=== PATIENT | female | born 1955 | race Two or more races ===

== ENCOUNTER 2019-06-21 14:24 | Emergency (ER) | payer MEDICARE, OTHER ==
[~2019-06-21] VITALS: Ht 160 cm; Wt 91.8 kg
[2019-06-21 14:37] VITALS: Ht 160 cm; Wt 91.8 kg
--- NOTE | 2019-06-21 14:53 | ERD ---
ER Documentation Chief Complaint Chief Complaint glucose is 394, has diarrhea sent by pmd HPI The patient is a 64-year-old female, presenting to the ER because of vomiting and diarrhea for 3 days, denies hematemesis/hematochezia, fever, chills, neck pain, chest pain, dyspnea, abdominal pain, dysuria. 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 Medications Home Meds Reported Medications Atorvastatin* (Atorvastatin*) 40 Mg Tablet, 1 TAB ORAL DAILY 06/21/19 Metformin Hcl* (Metformin Hcl*) 1,000 Mg Tablet, 1 TAB ORAL BID 06/21/19 Insulin Lispro (Humalog Kwikpen U-100) 100 Unit/1 Ml Insuln.pen, 0-12 UNITS SQ TID 06/21/19 Gabapentin* (Gabapentin*) 100 Mg Capsule, 1 CAP ORAL DAILY 06/21/19 Aspirin* (Aspirin* EC) 81 Mg Tablet.dr, 1 TAB ORAL QAM 06/21/19 Benazepril Hcl* (Benazepril Hcl*) 40 Mg Tablet, 1 TAB ORAL DAILY 06/21/19 Allergies Allergies: Coded Allergies: No Known Allergy (Unverified , 06/21/19) Physical Exam Vitals Vital Signs Date Temp Pulse Resp B/P (MAP) Pulse Ox O2 O2 Flow FiO2 Time Delivery Rate 06/21/19 82 16 120/74 100 Room Air 19:06 (89) 06/21/19 83 16 118/76 100 Room Air 16:15 (90) 06/21/19 79 16 126/54 97 Room Air 15:45 (78) 06/21/19 89 16 141/51 98 Room Air 15:13 (81) 06/21/19 98.4 85 18 155/66 100 14:37 (95) Physical Exam Const: No acute distress. Head: Atraumatic. Eyes: Normal Conjunctiva. ENT: Normal External Ears, Nose and Mouth. Neck: Full range of motion. No meningismus. Resp: Clear to auscultation bilaterally. Cardio: Regular rate and rhythm. Abd: Soft, non distended, normal bowel sounds, non tender. Skin: No petechiae or rashes. Back: No midline or flank tenderness. Ext: No cyanosis, or edema. Left leg is immobilized Neur: Awake and alert. No focal deficit Psych: Normal Mood and Affect. Result Diagram: 06/21/19 1513 06/21/19 1513 Results 24 hrs Laboratory Tests Test 06/21/19 14:37 06/21/19 14:54 06/21/19 15:13 06/21/19 15:30 Bedside Glucose 394 mg/dL Blood Gas Blood venous Specimen Source Arterial Blood 06/21/2019 3:13: Date Drawn 13 PM Arterial Blood VENOUS LINE Gas Puncture Site Ramesh Test N/A Venous Blood pH 7.349 Venous Blood 43.8 mmHG pCO2 (Temp Corrected ) Venous Blood 20.7 mmHG pO2 (Temp Corrected ) Venous Blood 23.6 mmol/L HCO3 Venous Blood 32.7 mmHG Oxygen Saturation Venous Blood -2.1 mmol/L Base Excess Venous Blood 12.8 g/dl Total Hemoglobin Venous Blood 32.4 % Oxyhemoglobin Venous Blood 0.7 % Methemoglobin Carboxyhemoglob 0.1 % in Blood Gas 37.0 C Temperature Blood Gas ROOM AIR Modality FiO2 21.0 % Blood Gas rt Notified Whom Blood Gas 06/21/2019 3:26: Notified Time 20 PM White Blood 10.0 10^3/ul Count Red Blood Count 4.86 10^6/ul Hemoglobin 12.3 g/dl Hematocrit 37.4 % Mean 77.0 fl Corpuscular Volume Mean 25.3 pg Corpuscular Hemoglobin Mean 32.9 g/dl Corpuscular Hemoglobin Conc ent Red Cell 14.3 % Distribution Width Platelet Count 382 10^3/UL Mean Platelet 10.6 fl Volume Immature 0.400 % Granulocytes % Neutrophils % 55.5 % Lymphocytes % 34.0 % Monocytes % 7.4 % Eosinophils % 2.1 % Basophils % 0.6 % Nucleated Red 0.0 /100WBC Blood Cells % Immature 0.040 10^3/ul Granulocytes # Neutrophils # 5.6 10^3/ul Lymphocytes # 3.4 10^3/ul Monocytes # 0.7 10^3/ul Eosinophils # 0.2 10^3/ul Basophils # 0.1 10^3/ul Nucleated Red 0.0 10^3/ul Blood Cells # Sodium Level 137 mmol/L Potassium Level 4.0 mmol/L Chloride Level 101 mmol/L Carbon Dioxide 25 mmol/L Level Anion Gap 11 Blood Urea 13 mg/dl Nitrogen Creatinine 1.17 mg/dl Est Glomerular 47 mL/min Filtrat Rate mL/min Glucose Level 394 mg/dl Calcium Level 9.7 mg/dl Phosphorus 3.5 mg/dl Level Magnesium Level 1.5 mg/dl Urine Color STRAW Urine Clarity CLEAR Urine pH 6.0 Urine Specific 1.015 [place] Urine Ketones NEGATIVE mg/dL Urine Nitrite NEGATIVE mg/dL Urine Bilirubin NEGATIVE mg/dL Urine NEGATIVE mg/dL Urobilinogen Urine Leukocyte NEGATIVE Sherie/ul Esterase Urine NEGATIVE mg/dL Hemoglobin Urine Glucose 3+ mg/dL Urine Total NEGATIVE mg/dl Protein Test 06/21/19 18:27 Bedside Glucose 316 mg/dL Current Medications Medications Dose Sig/Monica Start Time Status Last (Trade) Ordered Route PRN Stop Time Admin Dose Reason Admin Sodium 920 ml @ ONCE ONCE 06/21/19 DC 06/21/19 Chloride 920 mls/hr IV 15:00 15:33 06/21/19 15:59 Magnesium 50 ml @ 25 ONCE ONCE 06/21/19 DC 06/21/19 Sulfate mls/hr IVPB 18:30 18:24 06/21/19 19:06 Procedures/MDM MEDICAL MAKING DECISION: The patient is a 64-year-old female, presenting with acute vomiting and diarrhea, acute hyperglycemia, acute hypomagnesia. She was treated with normosaline 10 mm/kg IV for acute hyperglycemia, magnesium sulfate 2 g IV for acute hypomagnesia with good response, is stable for outpatient follow-up The differential diagnoses considered include but are not limited to cholelithiasis, cholecystitis, choledocholithiasis, cholangitis, pancreatitis, hepatitis, gastritis, peptic ulcer disease, gastric ulcer, appendicitis, cystitis, diverticulitis, partial small bowel obstruction. Departure Diagnosis: Primary Impression: Vomiting and diarrhea Additional Impressions: Hyperglycemia Hypomagnesemia Condition: Stable Comments She was discharged with Imodium and Zofran I discussed the findings with the patient. I advised the patient to follow-up with the primary physician in about 1-2 days, sooner if needed and return if any concern. Disclaimer: Inadvertent spelling and grammatical errors are likely due to EHR/dictation software use and do not reflect on the overall quality of patient care. Also, please note that the electronic time recorded on this note does not necessarily reflect the actual time of the patient encounter. RAMY SHETTY MD Jun 21, 2019 14:53
[2019-06-21] MEDS ORDERED: SOD CHLORIDE 0.9% 920 ML IV ONE (15:00)
[2019-06-21] MEDS ORDERED: MAGNESIUM SULFATE 2 GM/50 ML 50 ML IVPB ONE (18:30)
[2019-06-21 19:06] VITALS: BP 120/74; PULSE 82; RESP 16
[2019-06-21] MEDS ORDERED: ASPI-817 ORAL (19:26)
[2019-06-21] MEDS ORDERED: BENA40TA56 ORAL (19:26)
[2019-06-21] MEDS ORDERED: METF100010 ORAL (19:26)
[2019-06-21] MEDS ORDERED: ATOR40TA68 ORAL (19:26)
[2019-06-21] MEDS ORDERED: GABA100C14 ORAL (19:26)
[2019-06-21] MEDS ORDERED: INSU100I12 SQ (19:26)
== END 2019-06-21 19:06 | disposition home or self-care (01) ==
LOC: E/R 14:24
DX: R19.7 Diarrhea, unspecified (principal); R11.10 Vomiting, unspecified; E83.42 Hypomagnesemia; Z79.82 Long term (current) use of aspirin; Z79.84 Long term (current) use of oral hypoglycemic drugs
CPT/HCPCS: 36415; 80048; 81003; 82803; 82962; 83735; 84100; 85025; 96374; 99284; J3475

== ENCOUNTER 2019-06-29 23:32 | Inpatient (IN) | payer MEDICARE, OTHER ==
[~2019-06-29] VITALS: Ht 162.6 cm; Wt 95.3 kg
[~2019-06-29 23:32] MED LIST: ASPI-817 ORAL; ATOR40TA68 ORAL; BENA40TA56 ORAL; CHOL100062 PO; DOXY100T2 PO; GABA100C14 ORAL; INSU100I12 SQ; LANT3I SC; METF100010 ORAL; RIFA300C3 PO
[2019-06-30] MEDS ORDERED: SOD CHLORIDE 0.9% 500 ML IV STA (02:11)
[2019-06-30] MEDS ORDERED: morphine 4 MG/ML VIAL IV STA (02:13)
[2019-06-30] MEDS ORDERED: ONDANSETRON 4 MG INJ IV STA (02:13)
--- NOTE | 2019-06-30 03:23 | ERD ---
ER Documentation Chief Complaint Chief Complaint Left lower leg pain,redness noted,feels warm HPI This is a 64-year-old female comes in with left lower leg pain redness erythema and induration. She has chronic ulcers which that over the last 2 days they have been increasing indurated and has noticed some purulent drainage. She fo [facility]low[facility] the [facility] here. Denies fevers or chills. Denies any other current complaints. ROS All systems reviewed and are negative except as per history of present illness. Medications Home Meds Reported Medications Atorvastatin* (Atorvastatin*) 40 Mg Tablet, 1 TAB ORAL DAILY 06/21/19 Metformin Hcl* (Metformin Hcl*) 1,000 Mg Tablet, 1 TAB ORAL BID 06/21/19 Insulin Lispro (Humalog Kwikpen U-100) 100 Unit/1 Ml Insuln.pen, 0-12 UNITS SQ TID 06/21/19 Gabapentin* (Gabapentin*) 100 Mg Capsule, 1 CAP ORAL DAILY 06/21/19 Aspirin* (Aspirin* EC) 81 Mg Tablet.dr, 1 TAB ORAL QAM 06/21/19 Benazepril Hcl* (Benazepril Hcl*) 40 Mg Tablet, 1 TAB ORAL DAILY 06/21/19 Allergies Allergies: Coded Allergies: No Known Allergy (Unverified , 06/21/19) PMhx/Soc History of Surgery: Yes ( Section) Anesthesia Reaction: No Hx Neurological Disorder: No Hx Respiratory Disorders: No Hx Cardiac Disorders: Yes (HTN) Hx Psychiatric Problems: No Hx Alcohol Use: No Hx Substance Use: No Hx Tobacco Use: No Smoking Status: Never smoker Physical Exam Vitals Vital Signs Date Temp Pulse Resp B/P (MAP) Pulse Ox O2 O2 Flow FiO2 Time Delivery Rate 06/29/19 98.2 92 18 141/75 96 23:44 (97) Physical Exam Const: No acute distress Head: Atraumatic Eyes: Normal Conjunctiva ENT: Normal External Ears, Nose and Mouth. Neck: Full range of motion. No meningismus. Resp: Clear to auscultation bilaterally Cardio: Regular rate and rhythm, no murmurs Abd: Soft, non tender, non distended. Normal bowel sounds Skin: Erythema and induration are noted in the lower extremity. No purulent drainage is noted normal pulses. Back: No midline or flank tenderness Ext: No cyanosis, or edema Neur: Awake and alert Psych: Normal Mood and Affect Result Diagram: 06/30/19 0240 06/30/19 0240 Results 24 hrs Laboratory Tests Test 06/30/19 02:40 White Blood Count 9.5 10^3/ul Red Blood Count 4.78 10^6/ul Hemoglobin 11.9 g/dl Hematocrit 37.1 % Mean Corpuscular Volume 77.6 fl Mean Corpuscular Hemoglobin 24.9 pg Mean Corpuscular Hemoglobin Concent 32.1 g/dl Red Cell Distribution Width 14.4 % Platelet Count 342 10^3/UL Mean Platelet Volume 11.0 fl Immature Granulocytes % 0.400 % Neutrophils % 60.1 % Lymphocytes % 30.3 % Monocytes % 5.9 % Eosinophils % 2.7 % Basophils % 0.6 % Nucleated Red Blood Cells % 0.0 /100WBC Immature Granulocytes # 0.040 10^3/ul Neutrophils # 5.7 10^3/ul Lymphocytes # 2.9 10^3/ul Monocytes # 0.6 10^3/ul Eosinophils # 0.3 10^3/ul Basophils # 0.1 10^3/ul Nucleated Red Blood Cells # 0.0 10^3/ul Urine Color YELLOW Urine Clarity CLEAR Urine pH 5.0 Urine Specific [place] 1.010 Urine Ketones NEGATIVE mg/dL Urine Nitrite NEGATIVE mg/dL Urine Bilirubin NEGATIVE mg/dL Urine Urobilinogen NEGATIVE mg/dL Urine Leukocyte Esterase NEGATIVE Sherie/ul Urine Hemoglobin NEGATIVE mg/dL Urine Glucose NEGATIVE mg/dL Urine Total Protein NEGATIVE mg/dl Sodium Level 139 mmol/L Potassium Level 4.1 mmol/L Chloride Level 104 mmol/L Carbon Dioxide Level 25 mmol/L Anion Gap 10 Blood Urea Nitrogen 13 mg/dl Creatinine 0.94 mg/dl Est Glomerular Filtrat Rate mL/min > 60 mL/min Glucose Level 201 mg/dl Calcium Level 9.5 mg/dl Total Bilirubin 0.3 mg/dl Direct Bilirubin 0.00 mg/dl Indirect Bilirubin 0.3 mg/dl Aspartate Amino Transf (AST/SGOT) 24 IU/L Alanine Aminotransferase (ALT/SGPT) 34 IU/L Alkaline Phosphatase 90 IU/L Total Protein 7.5 g/dl Albumin 3.9 g/dl Globulin 3.60 g/dl Albumin/Globulin Ratio 1.08 Lipase 139 U/L Current Medications Medications Dose Sig/Monica Start Time Status Last (Trade) Ordered Route PRN Stop Time Admin Dose Reason Admin Sodium 500 ml @ Q1H STAT 06/30/19 DC 06/30/19 Chloride 500 mls/hr IV 02:11 02:44 06/30/19 03:10 Morphine 4 mg ONCE STAT 06/30/19 DC 06/30/19 Sulfate IV 02:13 02:44 (morphine) 06/30/19 02:15 Ondansetron 4 mg ONCE STAT 06/30/19 DC 06/30/19 HCl (Zofran IV 02:13 02:44 Inj) 06/30/19 02:15 Ondansetron 4 mg BRIDGE ORDER 06/30/19 HCl (Zofran PRN IV 03:30 07/01/19 Inj) NAUSEA/VOMITI 03:29 NG 650 mg ER BRIDGE 06/30/19 Acetaminophen PRN PO 03:30 07/01/19 (Tylenol .MILD PAIN 03:29 Tab) 1-3 OR TEMP Piperacillin 100 ml @ ONCE ONCE 06/30/19 Sod/ 200 mls/hr IVPB 03:30 Tazobactam 06/30/19 03:59 Sod Procedures/MDM Medical decision makin female with looks to be infected chronic venous stasis ulcers. Patient will be admitted to hospitalist. Departure Diagnosis: Primary Impression: Infected stasis ulcer of lower extremity Condition: Serious MARYLOU FREEMAN Jun 30, 2019 03:23
[2019-06-30] MEDS ORDERED: ONDANSETRON 4 MG INJ IV PRN ×2 (03:30→04:00)
[2019-06-30] MEDS ORDERED: ACETAMINOPHEN 325 MG TAB PO PRN ×2 (03:30→04:00)
[2019-06-30] MEDS ORDERED: PIPER-TAZO 3.375 GM IV (PMX) 100 ML IVPB ONE (03:30)
[2019-06-30] MEDS ORDERED: ALBUTEROL/IPRATROPIUM (NEB) 3 ML AMP HHN PRN (04:00)
[2019-06-30] MEDS ORDERED: NACL 0.9% 3 ML SYG IV SCH (04:00)
[2019-06-30] MEDS ORDERED: HYDROCODONE/APAP (5/325) TAB PO PRN (04:00)
[2019-06-30 04:20] VITALS: BP 125/54; PULSE 81; RESP 18
[2019-06-30 04:23] VITALS: Ht 162.6 cm; Wt 95.3 kg
[2019-06-30] MEDS: HYDROCODONE/APAP (5/325) TAB PO PRN ×2 (04:51→12:14)
--- NOTE | 2019-06-30 06:54 | HP ---
Date/Time of Note Date/Time of Note DATE: 06/30/19 TIME: 06:50 Assessment/Plan VTE Prophylaxis SCD applied (from Nsg): Yes Pharmacological prophylaxis: heparin Lines/Catheters IV Catheter Type (from Nrsg): Peripheral IV Assessment/Plan Assessment/Plan 1. Acute on chronic left leg/ankle ulcer -Patient is venous stasis disease and chronic ulcer. 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 Min -IV antibiotic -Podiatry, ID and wound care consult -Wound culture 2. Hypertension: Continue home meds. Adjust as needed 3. Type 2 diabetes: Insulin while in-house 4. Dyslipidemia: Continue statin Result Diagram: 06/30/19 0240 06/30/19 0240 Results 24hrs Laboratory Tests Test 06/30/19 02:40 White Blood Count 9.5 Red Blood Count 4.78 Hemoglobin 11.9 L Hematocrit 37.1 Mean Corpuscular Volume 77.6 L Mean Corpuscular Hemoglobin 24.9 L Mean Corpuscular Hemoglobin Concent 32.1 Red Cell Distribution Width 14.4 Platelet Count 342 Mean Platelet Volume 11.0 H Immature Granulocytes % 0.400 Neutrophils % 60.1 Lymphocytes % 30.3 Monocytes % 5.9 Eosinophils % 2.7 Basophils % 0.6 Nucleated Red Blood Cells % 0.0 Immature Granulocytes # 0.040 H Neutrophils # 5.7 Lymphocytes # 2.9 Monocytes # 0.6 Eosinophils # 0.3 Basophils # 0.1 Nucleated Red Blood Cells # 0.0 Urine Color YELLOW Urine Clarity CLEAR Urine pH 5.0 Urine Specific [place] 1.010 Urine Ketones NEGATIVE Urine Nitrite NEGATIVE Urine Bilirubin NEGATIVE Urine Urobilinogen NEGATIVE Urine Leukocyte Esterase NEGATIVE Urine Hemoglobin NEGATIVE Urine Glucose NEGATIVE Urine Total Protein NEGATIVE Sodium Level 139 Potassium Level 4.1 Chloride Level 104 Carbon Dioxide Level 25 Anion Gap 10 Blood Urea Nitrogen 13 Creatinine 0.94 Est Glomerular Filtrat Rate mL/min > 60 Glucose Level 201 Calcium Level 9.5 Total Bilirubin 0.3 Direct Bilirubin 0.00 Indirect Bilirubin 0.3 Aspartate Amino Transf (AST/SGOT) 24 Alanine Aminotransferase (ALT/SGPT) 34 Alkaline Phosphatase 90 Total Protein 7.5 Albumin 3.9 Globulin 3.60 H Albumin/Globulin Ratio 1.08 Lipase 139 HPI/ROS Admit Date/Time Admit Date/Time Jun 30, 2019 at 03:17 Hx of Present Illness Patient is a 64-year-old female with a history of hypertension, type 2 diabetes (insulin-dependent), dyslipidemia who presented to ER complaining of worsening of left ankle/leg ulceration, redness, pain. Patient has venous stasis disease and ulceration of the left ankle. She underwent debridement 3 weeks ago by podiatry, Dr. Min. Patient here with increased discharge, erythema and tenderness. Vitals, basic labs is acceptable range. PMH/Family/Social Past Medical History Past Surgical Hx: other (see hpi) Family History Significant Family History: no pertinent family hx Social History Alcohol Use: other Smoking Status: Unknown if ever smoked Drug Use: other Exam Exam Constitutional: no acute distress Head: normocephalic, atraumatic Eyes: EOMI, PERRL Respiratory: clear to auscultation, normal air movement Cardiovascular: no skipped beat Gastrointestinal: soft, non-tender Extremities: palpable pulse Medications Current Medications IV Flush (NS 3 ml) 3 ml PER PROTOCOL IV ; Start 06/30/19 at 04:00 Ondansetron HCl (Zofran Inj) 4 mg Q6H PRN IV NAUSEA/VOMITING; Start 06/30/19 at 04:00 Acetaminophen (Tylenol Tab) 650 mg Q6H PRN PO .PAIN 1-3 OR TEMP; Start 06/30/19 at 04:00 Acetaminophen/ Hydrocodone Bitart ([place] (5/325)) 1 tab Q6H PRN PO .MOD PAIN 4- 6 Last administered on 06/30/19at 04:51; Admin Dose 1 TAB; Start 06/30/19 at 04:00 Acetaminophen/ Hydrocodone Bitart ([place] (5/325)) 2 tab Q6H PRN PO .SEVERE PAIN 7-10; Start 06/30/19 at 04:00 Heparin Sodium (Porcine) (Heparin (5000 Units/1ml)) 5,000 unit Q12 SC ; Start 06/30/19 at 09:00 Albuterol/ Ipratropium (Duoneb) 3 ml Q2H RESP THERAPY PRN HHN SHORTNESS OF BREATH; Start 06/30/19 at 04:00 Aspirin (Halfprin) 81 mg QAM PO ; Start 06/30/19 at 09:00 Atorvastatin Calcium (Lipitor) 40 mg QHS PO ; Start 06/30/19 at 21:00 Benazepril HCl (Lotensin) 40 mg DAILY PO ; Start 06/30/19 at 09:00 Gabapentin (Neurontin) 100 mg TID PO ; Start 06/30/19 at 09:00 Diagnostic Test (Pha) (Accu-Chek) 1 ea AC MEALS AND BEDTIME XX ; Start 06/30/19 at 07:05 Coded Allergies: No Known Allergy (Unverified , 06/21/19) Social History Smoking Status: Never smoker Exam/Review of Systems Vital Signs Vitals Vital Signs Date Temp Pulse Resp B/P (MAP) Pulse Ox O2 O2 Flow FiO2 Time Delivery Rate 06/30/19 98.7 81 18 125/54 100 04:20 (77) 06/30/19 Room Air 03:59 Intake and Output 06/29/19 06/29/19 06/30/19 1515:00 23:00 07:00 IntakeIntake Total 500 ml BalanceBalance 500 ml MARYLOU JENNINGS MD Jun 30, 2019 06:54
[2019-06-30] MEDS ORDERED: VANCOMYCIN IV PER PHARMACY XX SCH (07:00)
[2019-06-30] MEDS: ACCU-CHEK XX SCH ×4 (07:05→21:00)
[2019-06-30] MEDS ORDERED: VANCOMYCIN 1.5 GM/NS 250 ML 250 ML IVPB SCH (08:00)
[2019-06-30] MEDS: CEFEPIME 1GM/50 ML (PMX) 50 ML IVPB SCH ×2 (08:11→21:34)
[2019-06-30] MEDS: ASPIRIN (EC) 81 MG TAB PO SCH (08:12)
[2019-06-30] MEDS: HEPARIN 5,000 UNIT/1 ML VIAL SC SCH ×2 (08:12→21:39)
[2019-06-30] MEDS: GABAPENTIN 100 MG CAP PO SCH ×3 (08:12→21:34)
[2019-06-30] MEDS: BENAZEPRIL 40 MG TAB PO SCH (08:13)
[2019-06-30 08:21] VITALS: BP 110/57; PULSE 77
[2019-06-30] MEDS: INSULIN ASPART [NOVOLOG] 3 ML PEN SC SCH ×5 (13:22→21:00)
[2019-06-30] MEDS ORDERED: DEXTROSE 50% 50 ML SYRINGE IV PRN ×2 (13:30)
[2019-06-30] MEDS ORDERED: GLUCOSE GEL 15 GRAM TUBE BUCCAL PRN (13:30)
[2019-06-30] MEDS ORDERED: GLUCAGON 1 MG INJ IM PRN (13:30)
[2019-06-30] MEDS ORDERED: GLUCOSE GEL 15 GRAM TUBE PO PRN ×2 (13:30)
--- NOTE | 2019-06-30 15:06 | PN ---
Date/Time of Note Date/Time of Note DATE: 06/30/19 TIME: 15:04 Assessment/Plan VTE Prophylaxis Risk score (from Nsg)>0 risk: 2 SCD applied (from Nsg): Yes Pharmacological prophylaxis: heparin Lines/Catheters IV Catheter Type (from Nrs): [place] Assessment/Plan Hospital Course Assessment and plan #Acute on chronic left leg/ankle ulcer Continue antibiotics Continue wound care ID consult to follow Follow-up on cultures #Hypertension Continue antihypertensives Adjust as needed Diabetes Continue insulin Adjust regimen as needed Dyslipidemia Continue statin Disposition plan. Follow-up on ID recommendations. Follow-up cultures. Monitor in-house Discussed POC with Dr. Landaverde Result Diagram: 06/30/19 0240 06/30/19 0240 Results 24hrs Laboratory Tests Test 06/30/19 02:40 06/30/19 08:14 06/30/19 12:48 White Blood Count 9.5 Red Blood Count 4.78 Hemoglobin 11.9 L Hematocrit 37.1 Mean Corpuscular Volume 77.6 L Mean Corpuscular Hemoglobin 24.9 L Mean Corpuscular Hemoglobin Concent 32.1 Red Cell Distribution Width 14.4 Platelet Count 342 Mean Platelet Volume 11.0 H Immature Granulocytes % 0.400 Neutrophils % 60.1 Lymphocytes % 30.3 Monocytes % 5.9 Eosinophils % 2.7 Basophils % 0.6 Nucleated Red Blood Cells % 0.0 Immature Granulocytes # 0.040 H Neutrophils # 5.7 Lymphocytes # 2.9 Monocytes # 0.6 Eosinophils # 0.3 Basophils # 0.1 Nucleated Red Blood Cells # 0.0 Urine Color YELLOW Urine Clarity CLEAR Urine pH 5.0 Urine Specific [place] 1.010 Urine Ketones NEGATIVE Urine Nitrite NEGATIVE Urine Bilirubin NEGATIVE Urine Urobilinogen NEGATIVE Urine Leukocyte Esterase NEGATIVE Urine Hemoglobin NEGATIVE Urine Glucose NEGATIVE Urine Total Protein NEGATIVE Sodium Level 139 Potassium Level 4.1 Chloride Level 104 Carbon Dioxide Level 25 Anion Gap 10 Blood Urea Nitrogen 13 Creatinine 0.94 Est Glomerular Filtrat Rate mL/min > 60 Glucose Level 201 Hemoglobin A1c 13.2 H Calcium Level 9.5 Total Bilirubin 0.3 Direct Bilirubin 0.00 Indirect Bilirubin 0.3 Aspartate Amino Transf (AST/SGOT) 24 Alanine Aminotransferase (ALT/SGPT) 34 Alkaline Phosphatase 90 Total Protein 7.5 Albumin 3.9 Globulin 3.60 H Albumin/Globulin Ratio 1.08 Lipase 139 Bedside Glucose 175 296 H Subjective 24 Hr Interval Summary Free Text/Dictation Patient still with reports of left foot discomfort. 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 intact, nl mental status, nl speech Skin: other (Left lower lateral leg wound) Results Results 24hrs Laboratory Tests Test 06/30/19 02:40 06/30/19 08:14 06/30/19 12:48 White Blood Count 9.5 Red Blood Count 4.78 Hemoglobin 11.9 L Hematocrit 37.1 Mean Corpuscular Volume 77.6 L Mean Corpuscular Hemoglobin 24.9 L Mean Corpuscular Hemoglobin Concent 32.1 Red Cell Distribution Width 14.4 Platelet Count 342 Mean Platelet Volume 11.0 H Immature Granulocytes % 0.400 Neutrophils % 60.1 Lymphocytes % 30.3 Monocytes % 5.9 Eosinophils % 2.7 Basophils % 0.6 Nucleated Red Blood Cells % 0.0 Immature Granulocytes # 0.040 H Neutrophils # 5.7 Lymphocytes # 2.9 Monocytes # 0.6 Eosinophils # 0.3 Basophils # 0.1 Nucleated Red Blood Cells # 0.0 Urine Color YELLOW Urine Clarity CLEAR Urine pH 5.0 Urine Specific [place] 1.010 Urine Ketones NEGATIVE Urine Nitrite NEGATIVE Urine Bilirubin NEGATIVE Urine Urobilinogen NEGATIVE Urine Leukocyte Esterase NEGATIVE Urine Hemoglobin NEGATIVE Urine Glucose NEGATIVE Urine Total Protein NEGATIVE Sodium Level 139 Potassium Level 4.1 Chloride Level 104 Carbon Dioxide Level 25 Anion Gap 10 Blood Urea Nitrogen 13 Creatinine 0.94 Est Glomerular Filtrat Rate mL/min > 60 Glucose Level 201 Hemoglobin A1c 13.2 H Calcium Level 9.5 Total Bilirubin 0.3 Direct Bilirubin 0.00 Indirect Bilirubin 0.3 Aspartate Amino Transf (AST/SGOT) 24 Alanine Aminotransferase (ALT/SGPT) 34 Alkaline Phosphatase 90 Total Protein 7.5 Albumin 3.9 Globulin 3.60 H Albumin/Globulin Ratio 1.08 Lipase 139 Bedside Glucose 175 296 H Medications Medication Current Medications IV Flush (NS 3 ml) 3 ml PER PROTOCOL IV ; Start 06/30/19 at 04:00 Ondansetron HCl (Zofran Inj) 4 mg Q6H PRN IV NAUSEA/VOMITING Last administered on 06/30/19at 08:42; Admin Dose 4 MG; Start 06/30/19 at 04:00 Acetaminophen (Tylenol Tab) 650 mg Q6H PRN PO .PAIN 1-3 OR TEMP; Start 06/30/19 at 04:00 Acetaminophen/ Hydrocodone Bitart ([place] (5/325)) 1 tab Q6H PRN PO .MOD PAIN 4- 6 Last administered on 06/30/19at 12:14; Admin Dose 1 TAB; Start 06/30/19 at 04:00 Acetaminophen/ Hydrocodone Bitart ([place] (5/325)) 2 tab Q6H PRN PO .SEVERE PAIN 7-10; Start 06/30/19 at 04:00 Heparin Sodium (Porcine) (Heparin (5000 Units/1ml)) 5,000 unit Q12 SC Last administered on 06/30/19at 08:12; Admin Dose 5,000 UNIT; Start 06/30/19 at 09:00 Albuterol/ Ipratropium (Duoneb) 3 ml Q2H RESP THERAPY PRN HHN SHORTNESS OF BREATH; Start 06/30/19 at 04:00 Aspirin (Halfprin) 81 mg QAM PO Last administered on 06/30/19at 08:12; Admin Dose 81 MG; Start 06/30/19 at 09:00 Atorvastatin Calcium (Lipitor) 40 mg QHS PO ; Start 06/30/19 at 21:00 Benazepril HCl (Lotensin) 40 mg DAILY PO Last administered on 06/30/19at 08:13; Admin Dose 40 MG; Start 06/30/19 at 09:00 Gabapentin (Neurontin) 100 mg TID PO Last administered on 06/30/19at 13:27; Admin Dose 100 MG; Start 06/30/19 at 09:00 Diagnostic Test (Pha) (Accu-Chek) 1 ea AC MEALS AND BEDTIME XX ; Start 06/30/19 at 07:05 Vancomycin HCl (Vanco Iv Per Pharmacy) VANCOMYCIN PER PHARMACY PER PROTOCOL XX ; Start 06/30/19 at 07:00 Cefepime HCl 50 ml @ 100 mls/hr Q12 IVPB Last administered on 06/30/19at 08:11; Admin Dose 100 MLS/HR; Start 06/30/19 at 09:00 Vancomycin HCl 250 ml @ 125 mls/hr Q12H IVPB ; Start 06/30/19 at 18:00 Diagnostic Test (Pha) (Accu-Chek) 1 ea 02 XX ; Start 07/01/19 at 02:00 Insulin Glargine (Lantus) 14 units DAILY@2000 SC ; Start 06/30/19 at 20:00 Insulin Aspart (Novolog Insulin Pen) 5 unit WITH MEALS SC Last administered on 06/30/19at 13:22; Admin Dose 5 UNIT; Start 06/30/19 at 13:30 Insulin Aspart (Novolog Insulin Pen) NOVOLOG *MILD* ALGORITHM WITH MEALS BEDTIME SC Last administered on 06/30/19at 13:22; Admin Dose 4 UNIT; Start 06/30/19 at 13:30 Miscellaneous Information 1 ea NOTE XX ; Start 06/30/19 at 13:30 Glucose (Glutose) 15 gm Q15M PRN PO DECREASED GLUCOSE; Start 06/30/19 at 13:30 Glucose (Glutose) 22.5 gm Q15M PRN PO DECREASED GLUCOSE; Start 06/30/19 at 13:30 Dextrose (D50w Syringe) 25 ml Q15M PRN IV DECREASED GLUCOSE; Start 06/30/19 at 13:30 Dextrose (D50w Syringe) 50 ml Q15M PRN IV DECREASED GLUCOSE; Start 06/30/19 at 13:30 Glucagon (Glucagen) 1 mg Q15M PRN IM DECREASED GLUCOSE; Start 06/30/19 at 13:30 Glucose (Glutose) 15 gm Q15M PRN BUCCAL DECREASED GLUCOSE; Start 06/30/19 at 13:30 DANIEL FERRARI NP Jun 30, 2019 15:06
[2019-06-30] MEDS: VANCOMYCIN 1 GM 250 ML IVPB SCH (17:32)
[2019-06-30 19:43] VITALS: BP 104/51; PULSE 79; RESP 18
[2019-06-30] MEDS: INSULIN GLARGINE [LANTus] (100 UNITS/ML) SYG SC SCH (20:20)
[2019-06-30] MEDS: ATORVASTATIN 40 MG TAB PO SCH (21:34)
[2019-07-01 01:36] VITALS: BP 100/55; PULSE 74; RESP 18
[2019-07-01] MEDS: ACCU-CHEK XX SCH ×5 (02:00→20:43)
[2019-07-01] MEDS: VANCOMYCIN 1 GM 250 ML IVPB SCH ×2 (06:13→17:49)
[2019-07-01] MEDS: INSULIN ASPART [NOVOLOG] 3 ML PEN SC SCH ×7 (07:35→20:41)
[2019-07-01 08:00] VITALS: BP 114/55; PULSE 73; RESP 20
[2019-07-01] MEDS: GABAPENTIN 100 MG CAP PO SCH ×3 (08:48→20:34)
[2019-07-01] MEDS: ASPIRIN (EC) 81 MG TAB PO SCH (08:48)
[2019-07-01] MEDS: HYDROCODONE/APAP (5/325) TAB PO PRN ×2 (08:48→20:37)
[2019-07-01] MEDS: CEFEPIME 1GM/50 ML (PMX) 50 ML IVPB SCH ×2 (08:49→21:33)
[2019-07-01] MEDS: BENAZEPRIL 40 MG TAB PO SCH (08:49)
[2019-07-01] MEDS: HEPARIN 5,000 UNIT/1 ML VIAL SC SCH ×2 (08:52→20:41)
--- NOTE | 2019-07-01 11:04 | PN ---
Date/Time of Note Date/Time of Note DATE: 07/01/19 TIME: 11:02 Assessment/Plan VTE Prophylaxis Risk score (from Ns)>0 risk: 2 SCD applied (from Nsg): Yes Pharmacological prophylaxis: heparin Lines/Catheters IV Catheter Type (from Nrs): Saline Lock Assessment/Plan Hospital Course Assessment and plan #Acute on chronic left leg/ankle ulcer Continue antibiotics Continue wound care ID consult to follow Follow-up on cultures Podiatry consulted #Hypertension Continue antihypertensives Adjust as needed Diabetes Continue insulin Adjust regimen as needed Dyslipidemia Continue statin Disposition plan. Follow-up on ID recommendations. Follow-up cultures. analgesics prn. f/u labs Discussed POC with Dr. Landaverde Result Diagram: 07/01/19 0451 07/01/19 0451 Results 24hrs Laboratory Tests Test 06/30/19 12:48 06/30/19 17:08 06/30/19 20:16 06/30/19 21:32 Bedside Glucose 296 H 175 168 148 Test 07/01/19 04:51 07/01/19 08:18 White Blood Count 6.7 # Red Blood Count 4.08 L Hemoglobin 10.4 L Hematocrit 32.1 L Mean Corpuscular 78.7 L Volume Mean Corpuscular 25.5 L Hemoglobin Mean Corpuscular 32.4 Hemoglobin Concent Red Cell 14.6 H Distribution Width Platelet Count 285 Mean Platelet Volume 11.2 H Immature 0.300 Granulocytes % Neutrophils % 56.9 Lymphocytes % 34.4 Monocytes % 5.4 Eosinophils % 2.4 Basophils % 0.6 Nucleated Red Blood 0.0 Cells % Immature 0.020 Granulocytes # Neutrophils # 3.8 Lymphocytes # 2.3 Monocytes # 0.4 Eosinophils # 0.2 Basophils # 0.0 Nucleated Red Blood 0.0 Cells # Sodium Level 137 Potassium Level 4.2 Chloride Level 107 Carbon Dioxide Level 26 Anion Gap 4 L Blood Urea Nitrogen 9 Creatinine 0.68 Est Glomerular > 60 Filtrat Rate mL/min Glucose Level 148 # Hemoglobin A1c 13.2 H Calcium Level 8.7 Phosphorus Level 3.6 Magnesium Level 1.5 L Total Bilirubin 0.4 Direct Bilirubin 0.00 Indirect Bilirubin 0.4 Aspartate Amino 22 Transf (AST/SGOT) Alanine 23 Aminotransferase (AL T/SGPT) Alkaline Phosphatase 73 Total Protein 5.7 #L Albumin 3.0 L Globulin 2.70 Albumin/Globulin 1.11 Ratio Triglycerides Level 152 H Cholesterol Level 137 LDL Cholesterol, 76 Calculated HDL Cholesterol 31 L Cholesterol/HDL 4.4 Ratio Bedside Glucose 138 Subjective 24 Hr Interval Summary Free Text/Dictation Reports less pain on left lower extremity. Dressing in place, CDI Exam/Review of Systems Exam Vitals Vital Signs Date Temp Pulse Resp B/P (MAP) Pulse Ox O2 O2 Flow FiO2 Time Delivery Rate 07/01/19 98.0 73 20 114/55 96 08:00 (74) 06/30/19 Room Air 08:21 Intake and Output 06/30/19 06/30/19 07/01/19 1515:00 23:00 07:00 IntakeIntake Total 300 ml BalanceBalance 300 ml Exam Constitutional: alert, oriented, obese Psych: nl mood/affect Head: normocephalic Respiratory: clear to auscultation, normal air movement Cardiovascular: regular rate and rhythm Gastrointestinal: soft, non-tender Neurological: DULSER II-XII intact, nl mental status, nl speech Skin: other (Left lower lateral leg wound) dressing cdi Results Results 24hrs Laboratory Tests Test 06/30/19 12:48 06/30/19 17:08 06/30/19 20:16 06/30/19 21:32 Bedside Glucose 296 H 175 168 148 Test 07/01/19 04:51 07/01/19 08:18 White Blood Count 6.7 # Red Blood Count 4.08 L Hemoglobin 10.4 L Hematocrit 32.1 L Mean Corpuscular 78.7 L Volume Mean Corpuscular 25.5 L Hemoglobin Mean Corpuscular 32.4 Hemoglobin Concent Red Cell 14.6 H Distribution Width Platelet Count 285 Mean Platelet Volume 11.2 H Immature 0.300 Granulocytes % Neutrophils % 56.9 Lymphocytes % 34.4 Monocytes % 5.4 Eosinophils % 2.4 Basophils % 0.6 Nucleated Red Blood 0.0 Cells % Immature 0.020 Granulocytes # Neutrophils # 3.8 Lymphocytes # 2.3 Monocytes # 0.4 Eosinophils # 0.2 Basophils # 0.0 Nucleated Red Blood 0.0 Cells # Sodium Level 137 Potassium Level 4.2 Chloride Level 107 Carbon Dioxide Level 26 Anion Gap 4 L Blood Urea Nitrogen 9 Creatinine 0.68 Est Glomerular > 60 Filtrat Rate mL/min Glucose Level 148 # Hemoglobin A1c 13.2 H Calcium Level 8.7 Phosphorus Level 3.6 Magnesium Level 1.5 L Total Bilirubin 0.4 Direct Bilirubin 0.00 Indirect Bilirubin 0.4 Aspartate Amino 22 Transf (AST/SGOT) Alanine 23 Aminotransferase (AL T/SGPT) Alkaline Phosphatase 73 Total Protein 5.7 #L Albumin 3.0 L Globulin 2.70 Albumin/Globulin 1.11 Ratio Triglycerides Level 152 H Cholesterol Level 137 LDL Cholesterol, 76 Calculated HDL Cholesterol 31 L Cholesterol/HDL 4.4 Ratio Bedside Glucose 138 Medications Medication Current Medications IV Flush (NS 3 ml) 3 ml PER PROTOCOL IV ; Start 06/30/19 at 04:00 Ondansetron HCl (Zofran Inj) 4 mg Q6H PRN IV NAUSEA/VOMITING Last administered on 06/30/19 08:42; Admin Dose 4 MG; Start 06/30/19 at 04:00 Acetaminophen (Tylenol Tab) 650 mg Q6H PRN PO .PAIN 1-3 OR TEMP; Start 06/30/19 at 04:00 Acetaminophen/ Hydrocodone Bitart ([place] (5/325)) 1 tab Q6H PRN PO .MOD PAIN 4- 6 Last administered on 07/01/19at 08:48; Admin Dose 1 TAB; Start 06/30/19 at 04:00 Acetaminophen/ Hydrocodone Bitart ([place] (5/325)) 2 tab Q6H PRN PO .SEVERE PAIN 7-10; Start 06/30/19 at 04:00 Heparin Sodium (Porcine) (Heparin (5000 Units/1ml)) 5,000 unit Q12 SC Last administered on 07/01/19 08:52; Admin Dose 5,000 UNIT; Start 06/30/19 at 09:00 Albuterol/ Ipratropium (Duoneb) 3 ml Q2H RESP THERAPY PRN HHN SHORTNESS OF BREATH; Start 06/30/19 at 04:00 Aspirin (Halfprin) 81 mg QAM PO Last administered on 07/01/19 08:48; Admin Dose 81 MG; Start 06/30/19 at 09:00 Atorvastatin Calcium (Lipitor) 40 mg QHS PO Last administered on 06/30/19at 21:34; Admin Dose 40 MG; Start 06/30/19 at 21:00 Benazepril HCl (Lotensin) 40 mg DAILY PO Last administered on 07/01/19 08:49; Admin Dose 40 MG; Start 06/30/19 at 09:00 Gabapentin (Neurontin) 100 mg TID PO Last administered on 07/01/19at 08:48; Admin Dose 100 MG; Start 06/30/19 at 09:00 Diagnostic Test (Pha) (Accu-Chek) 1 ea AC MEALS AND BEDTIME XX ; Start 06/30/19 at 07:05 Vancomycin HCl (Vanco Iv Per Pharmacy) VANCOMYCIN PER PHARMACY PER PROTOCOL XX ; Start 06/30/19 at 07:00 Cefepime HCl 50 ml @ 100 mls/hr Q12 IVPB Last administered on 07/01/19at 08:49; Admin Dose 100 MLS/HR; Start 06/30/19 at 09:00 Vancomycin HCl 250 ml @ 125 mls/hr Q12H IVPB Last administered on 07/01/19at 06:13; Admin Dose 125 MLS/HR; Start 06/30/19 at 18:00 Diagnostic Test (Pha) (Accu-Chek) 1 ea 02 XX ; Start 07/01/19 at 02:00 Insulin Glargine (Lantus) 14 units DAILY@2000 SC Last administered on 06/30/19at 20:20; Admin Dose 14 UNITS; Start 06/30/19 at 20:00 Insulin Aspart (Novolog Insulin Pen) 5 unit WITH MEALS SC Last administered on 07/01/19at 08:52; Admin Dose 5 UNIT; Start 06/30/19 at 13:30 Insulin Aspart (Novolog Insulin Pen) NOVOLOG *MILD* ALGORITHM WITH MEALS BEDTIME SC Last administered on 06/30/19at 17:34; Admin Dose 1 UNIT; Start 06/30/19 at 13:30 Miscellaneous Information 1 ea NOTE XX ; Start 06/30/19 at 13:30 Glucose (Glutose) 15 gm Q15M PRN PO DECREASED GLUCOSE; Start 06/30/19 at 13:30 Glucose (Glutose) 22.5 gm Q15M PRN PO DECREASED GLUCOSE; Start 06/30/19 at 13:30 Dextrose (D50w Syringe) 25 ml Q15M PRN IV DECREASED GLUCOSE; Start 06/30/19 at 13:30 Dextrose (D50w Syringe) 50 ml Q15M PRN IV DECREASED GLUCOSE; Start 06/30/19 at 13:30 Glucagon (Glucagen) 1 mg Q15M PRN IM DECREASED GLUCOSE; Start 06/30/19 at 13:30 Glucose (Glutose) 15 gm Q15M PRN BUCCAL DECREASED GLUCOSE; Start 06/30/19 at 13:30 DANIEL FERRARI NP Jul 01, 2019 11:03
--- NOTE | 2019-07-01 13:31 | CONS ---
DATE OF ADMISSION: 06/30/2019 DATE OF CONSULTATION: 07/01/2019 TYPE OF CONSULTATION: Infectious disease. REASON FOR CONSULTATION: Antibiotic management. HISTORY OF PRESENT ILLNESS: Guerda Swenson is a 64-year-old female who comes in with left lower leg p ain with redness and induration. She has chronic ulcers which over the last few days have been incre asingly indurated and she noted some purulent drainage as well. She follows up at the [facility]. Past problems include history of and hypertension as well as diabetes mellitus. She is on insulin and she has diabetic neuropathy, on gabapentin. She also is hypertensive as noted. PAST MEDICAL HISTORY: As outlined. FAMILY HISTORY: Noncontributory. SOCIAL HISTORY: She does not smoke, drink or abuse drugs. ALLERGIES: NONE TO PENICILLIN, SULFA OR FOODS. MEDICATIONS: Per chart. REVIEW OF SYSTEMS: Noncontributory. PHYSICAL EXAMINATION: GENERAL: The patient is a well-developed, well-nourished female, alert, responsive, in no acute dist ress. VITAL SIGNS: Stable. She is afebrile. SKIN: Without generalized rash. HEENT: Within normal limits. NECK: Supple. LYMPH NODES: None palpable. CHEST: Decreased breath sounds at the bases. HEART: Without murmur or gallop. ABDOMEN: Soft, nontender, without organosplenomegaly or masses. EXTREMITIES: She has erythema and induration in the lower extremities without purulent drainage. RECTAL AND GENITAL: Deferred. NEUROLOGIC: No focal neurological abnormality. ANCILLARY LABORATORY DATA: White count is 9.5, H and H 11.9 and 37.1, platelet count 342,000. BUN a nd creatinine 13/0.94 and glucose of 201. Her neutrophil count is 60%. IMPRESSION AND PLAN: The patient was started on Zosyn. Wound cultures growing Staph aureus. MRSA s creen is negative. Blood cultures are negative. The patient was begun on vancomycin as well as cefe pime. At present, patient has acute on chronic left leg ankle ulcer. Podiatry was consulted. She i s on good medication with regards to her antibiotics. We will continue her on current therapy. I wi ll dictate my findings to the hospitalists. Dictated By: LOPEZ PACE MD, JD/KOFI Conf#: [id number] [facility]#: [id number] CC: MARYLOU JENNINGS MD;*End*
[2019-07-01 14:00] VITALS: BP 126/47; PULSE 76; RESP 16
[2019-07-01 19:57] VITALS: BP 124/59; PULSE 75; RESP 18
[2019-07-01] MEDS: ATORVASTATIN 40 MG TAB PO SCH (20:34)
[2019-07-01] MEDS: INSULIN GLARGINE [LANTus] (100 UNITS/ML) SYG SC SCH (20:41)
[2019-07-01] MEDS ORDERED: MAGNESIUM HYDROXIDE 30ML CUP PO PRN (23:30)
[2019-07-02 01:50] VITALS: BP 103/54; PULSE 72; RESP 16
[2019-07-02] MEDS: ACCU-CHEK XX SCH ×5 (02:00→20:26)
[2019-07-02] MEDS: VANCOMYCIN 1 GM 250 ML IVPB SCH ×2 (05:26→18:08)
[2019-07-02 08:08] VITALS: BP 119/58; PULSE 79; RESP 18
[2019-07-02] MEDS: GABAPENTIN 100 MG CAP PO SCH ×3 (08:09→20:20)
[2019-07-02] MEDS: ASPIRIN (EC) 81 MG TAB PO SCH (08:09)
[2019-07-02] MEDS: BENAZEPRIL 40 MG TAB PO SCH (08:10)
[2019-07-02] MEDS: HEPARIN 5,000 UNIT/1 ML VIAL SC SCH ×2 (08:15→20:19)
[2019-07-02] MEDS: INSULIN ASPART [NOVOLOG] 3 ML PEN SC SCH ×7 (08:16→20:17)
[2019-07-02] MEDS: CEFEPIME 1GM/50 ML (PMX) 50 ML IVPB SCH (08:23)
--- NOTE | 2019-07-02 10:09 | QN ---
Documentation Comment 8.2.[address] Min office (podiatry). Office closed today. Will follow up DANIEL FERRARI NP Jul 02, 2019 10:09
--- NOTE | 2019-07-02 11:58 | PN ---
Date/Time of Note Date/Time of Note DATE: 07/02/19 TIME: 11:54 Assessment/Plan VTE Prophylaxis Risk score (from Nsg)>0 risk: 4 SCD applied (from Nsg): Yes Pharmacological prophylaxis: heparin Lines/Catheters IV Catheter Type (from Nrsg): Saline Lock Assessment/Plan Hospital Course Assessment and plan #Acute on chronic left leg/ankle ulcer Continue antibiotics Continue wound care ID consult following culture with MRSA Await wound care consult eval #Hypertension Continue antihypertensives Adjust as needed Diabetes Continue insulin Adjust regimen as needed Dyslipidemia Continue statin Disposition plan. Follow-up on ID recommendations. continue abx. await wound care consult recommendations. Discussed POC with Dr. Landaverde Result Diagram: 07/01/19 0451 07/01/19 0451 Results 24hrs Laboratory Tests Test 07/01/19 12:29 07/01/19 17:02 07/01/19 20:33 07/02/19 01:55 Bedside Glucose 166 159 207 160 Vancomycin Level Trough 14.7 Test 07/02/19 08:01 Bedside Glucose 172 Subjective 24 Hr Interval Summary Free Text/Dictation Patient with no acute distress seen. Family at bedside. Reports less pain on left lower leg Exam/Review of Systems Exam Vitals Vital Signs Date Temp Pulse Resp B/P (MAP) Pulse Ox O2 O2 Flow FiO2 Time Delivery Rate 07/02/19 98.5 79 18 119/58 99 Room Air 08:08 (78) Intake and Output 07/01/19 07/01/19 07/02/19 1515:00 23:00 07:00 IntakeIntake Total 700 ml 500 ml 120 ml BalanceBalance 700 ml 500 ml 120 ml Exam Constitutional: alert, oriented, obese Psych: nl mood/affect Head: normocephalic Respiratory: clear to auscultation, normal air movement Cardiovascular: regular rate and rhythm Gastrointestinal: soft, non-tender Neurological: [employer] DES[employer]ER II-XII intact, nl mental status, nl speech Skin: other (Left lower lateral leg wound) dressing cdi Results Results 24hrs Laboratory Tests Test 07/01/19 12:29 07/01/19 17:02 07/01/19 20:33 07/02/19 01:55 Bedside Glucose 166 159 207 160 Vancomycin Level Trough 14.7 Test 07/02/19 08:01 Bedside Glucose 172 Medications Medication Current Medications IV Flush (NS 3 ml) 3 ml PER PROTOCOL IV ; Start 7/31/19 at 04:00 Ondansetron HCl (Zofran Inj) 4 mg Q6H PRN IV NAUSEA/VOMITING Last administered on 06/30/19 08:42; Admin Dose 4 MG; Start 06/30/19 at 04:00 Acetaminophen (Tylenol Tab) 650 mg Q6H PRN PO .PAIN 1-3 OR TEMP; Start 06/30/19 at 04:00 Acetaminophen/ Hydrocodone Bitart ([place] (5/325)) 1 tab Q6H PRN PO .MOD PAIN 4- 6 Last administered on 07/01/19 20:37; Admin Dose 1 TAB; Start 06/30/19 at 04:00 Acetaminophen/ Hydrocodone Bitart ([place] (5/325)) 2 tab Q6H PRN PO .SEVERE PAIN 7-10; Start 06/30/19 at 04:00 Heparin Sodium (Porcine) (Heparin (5000 Units/1ml)) 5,000 unit Q12 SC Last administered on 07/02/19 08:15; Admin Dose 5,000 UNIT; Start 06/30/19 at 09:00 Albuterol/ Ipratropium (Duoneb) 3 ml Q2H RESP THERAPY PRN HHN SHORTNESS OF BREATH; Start 06/30/19 at 04:00 Aspirin (Halfprin) 81 mg QAM PO Last administered on 07/02/19 08:09; Admin Dose 81 MG; Start 06/30/19 at 09:00 Atorvastatin Calcium (Lipitor) 40 mg QHS PO Last administered on 07/01/19 20:34; Admin Dose 40 MG; Start 06/30/19 at 21:00 Benazepril HCl (Lotensin) 40 mg DAILY PO Last administered on 07/02/19 08:10; Admin Dose 40 MG; Start 06/30/19 at 09:00 Gabapentin (Neurontin) 100 mg TID PO Last administered on 07/02/19 08:09; Admin Dose 100 MG; Start 06/30/19 at 09:00 Diagnostic Test (Pha) (Accu-Chek) 1 ea AC MEALS AND BEDTIME XX Last administered on 07/02/19 08:09; Admin Dose 1 EA; Start 06/30/19 at 07:05 Vancomycin HCl (Vanco Iv Per Pharmacy) VANCOMYCIN PER PHARMACY PER PROTOCOL XX ; Start 06/30/19 at 07:00 Cefepime HCl 50 ml @ 100 mls/hr Q12 IVPB Last administered on 07/02/19at 08:23; Admin Dose 100 MLS/HR; Start 06/30/19 at 09:00 Vancomycin HCl 250 ml @ 125 mls/hr Q12H IVPB Last administered on 07/02/19at 0 5:26; Admin Dose 125 MLS/HR; Start 06/30/19 at 18:00 Diagnostic Test (Pha) (Accu-Chek) 1 ea 02 XX ; Start 07/01/19 at 02:00 Insulin Glargine (Lantus) 14 units DAILY@2000 SC Last administered on 07/01/19at 20:41; Admin Dose 14 UNITS; Start 06/30/19 at 20:00 Insulin Aspart (Novolog Insulin Pen) 5 unit WITH MEALS SC Last administered on 07/02/19at 08:16; Admin Dose 5 UNIT; Start 06/30/19 at 13:30 Insulin Aspart (Novolog Insulin Pen) NOVOLOG *MILD* ALGORITHM WITH MEALS BEDTIME SC Last administered on 07/02/19at 08:16; Admin Dose 1 UNIT; Start 06/30/19 at 13:30 Miscellaneous Information 1 ea NOTE XX ; Start 06/30/19 at 13:30 Glucose (Glutose) 15 gm Q15M PRN PO DECREASED GLUCOSE; Start 06/30/19 at 13:30 Glucose (Glutose) 22.5 gm Q15M PRN PO DECREASED GLUCOSE; Start 06/30/19 at 13:30 Dextrose (D50w Syringe) 25 ml Q15M PRN IV DECREASED GLUCOSE; Start 06/30/19 at 13:30 Dextrose (D50w Syringe) 50 ml Q15M PRN IV DECREASED GLUCOSE; Start 06/30/19 at 13:30 Glucagon (Glucagen) 1 mg Q15M PRN IM DECREASED GLUCOSE; Start 06/30/19 at 13:30 Glucose (Glutose) 15 gm Q15M PRN BUCCAL DECREASED GLUCOSE; Start 06/30/19 at 13:30 Magnesium Hydroxide (Milk Of Mag) 30 ml Q12H PRN PO CONSTIPATION Last admi nistered on 07/02/19at 01:54; Admin Dose 30 ML; Start 07/01/19 at 23:30 DANIEL FERRARI NP Jul 02, 2019 11:58
[2019-07-02 13:46] VITALS: BP 135/61; PULSE 71; RESP 18
[2019-07-02] MEDS: RIFAMPIN 300 MG CAP PO SCH (13:48)
--- NOTE | 2019-07-02 15:25 | CONS ---
Assessment/Plan Assessment/Plan Hospital Course (Demo Recall) No acute changes overnight patient is alert feels good denies pain at the moment no fevers overnight WBC yesterday was 6.7 Microbiology: Blood culture and MRSA swab negative left leg wound culture growing MRSA Antimicrobials: Vancomycin Rifampin Physical examination: Well-developed obese elderly woman who is alert in no distress head atraumatic normocephalic sclera nonicteric neck is supple chest rise symmetrical breath sounds clear heart S1-S2 abdomen soft bowel sounds present extremities: Left lower extremity dressing intact Assessment: 1. Left lower extremity cellulitis with chronic wound 2. Diabetes 3. Hypertension Plan: Patient remains stable we will continue her on current antibiotics, consider podiatry evaluation, consider vascular studies Consultation Date/Type/Reason Admit Date/Time Jun 30, 2019 at 08:16 Initial Consult Date Type of Consult id Date/Time of Note DATE: 07/02/19 TIME: 15:24 Exam/Review of Systems Exam Vitals Vital Signs Date Temp Pulse Resp B/P (MAP) Pulse Ox O2 O2 Flow FiO2 Time Delivery Rate 07/02/19 98.4 71 18 135/61 97 Room Air 13:46 (85) Intake and Output 07/01/19 07/01/19 07/02/19 1515:00 23:00 07:00 IntakeIntake Total 700 ml 500 ml 120 ml BalanceBalance 700 ml 500 ml 120 ml Results Result Diagram: 07/01/19 0451 07/01/19 0451 Results 24hrs Laboratory Tests Test 07/01/19 17:02 07/01/19 20:33 07/02/19 01:55 07/02/19 08:01 Bedside Glucose 159 207 160 172 Vancomycin Level Trough 14.7 Test 07/02/19 12:21 Bedside Glucose 225 H Medications Medication Current Medications IV Flush (NS 3 ml) 3 ml PER PROTOCOL IV ; Start 06/30/19 at 04:00 Ondansetron HCl (Zofran Inj) 4 mg Q6H PRN IV NAUSEA/VOMITING Last administered on 06/30/19at 08:42; Admin Dose 4 MG; Start 06/30/19 at 04:00 Acetaminophen (Tylenol Tab) 650 mg Q6H PRN PO .PAIN 1-3 OR TEMP; Start 06/30/19 at 04:00 Acetaminophen/ Hydrocodone Bitart ([place] (5/325)) 1 tab Q6H PRN PO .MOD PAIN 4- 6 Last administered on 07/01/19 20:37; Admin Dose 1 TAB; Start 06/30/19 at 04:00 Acetaminophen/ Hydrocodone Bitart ([place] (5/325)) 2 tab Q6H PRN PO .SEVERE PAIN 7-10; Start 06/30/19 at 04:00 Heparin Sodium (Porcine) (Heparin (5000 Units/1ml)) 5,000 unit Q12 SC Last administered on 07/02/19 08:15; Admin Dose 5,000 UNIT; Start 06/30/19 at 09:00 Albuterol/ Ipratropium (Duoneb) 3 ml Q2H RESP THERAPY PRN HHN SHORTNESS OF BREATH; Start 06/30/19 at 04:00 Aspirin (Halfprin) 81 mg QAM PO Last administered on 07/02/19 08:09; Admin Dose 81 MG; Start 06/30/19 at 09:00 Atorvastatin Calcium (Lipitor) 40 mg QHS PO Last administered on 07/01/19 20:34; Admin Dose 40 MG; Start 06/30/19 at 21:00 Benazepril HCl (Lotensin) 40 mg DAILY PO Last administered on 07/02/19 08:10; Admin Dose 40 MG; Start 06/30/19 at 09:00 Gabapentin (Neurontin) 100 mg TID PO Last administered on 07/02/19 12:32; Admin Dose 100 MG; Start 06/30/19 at 09:00 Diagnostic Test (Pha) (Accu-Chek) 1 ea AC MEALS AND BEDTIME XX Last administered on 07/02/19 12:23; Admin Dose 1 EA; Start 06/30/19 at 07:05 Vancomycin HCl (Vanco Iv Per Pharmacy) VANCOMYCIN PER PHARMACY PER PROTOCOL XX ; Start 06/30/19 at 07:00 Vancomycin HCl 250 ml @ 125 mls/hr Q12H IVPB Last administered on 07/02/19 0 5:26; Admin Dose 125 MLS/HR; Start 06/30/19 at 18:00 Diagnostic Test (Pha) (Accu-Chek) 1 ea 02 XX ; Start 07/01/19 at 02:00 Insulin Glargine (Lantus) 14 units DAILY@2000 SC Last administered on 8/1/19at 20:41; Admin Dose 14 UNITS; Start 06/30/19 at 20:00 Insulin Aspart (Novolog Insulin Pen) 5 unit WITH MEALS SC Last administered on 07/02/19at 12:30; Admin Dose 5 UNIT; Start 06/30/19 at 13:30 Insulin Aspart (Novolog Insulin Pen) NOVOLOG *MILD* ALGORITHM WITH MEALS BEDTIME SC Last administered on 07/02/19at 12:32; Admin Dose 3 UNIT; Start 06/30/19 at 13:30 Miscellaneous Information 1 ea NOTE XX ; Start 06/30/19 at 13:30 Glucose (Glutose) 15 gm Q15M PRN PO DECREASED GLUCOSE; Start 06/30/19 at 13:30 Glucose (Glutose) 22.5 gm Q15M PRN PO DECREASED GLUCOSE; Start 06/30/19 at 13:30 Dextrose (D50w Syringe) 25 ml Q15M PRN IV DECREASED GLUCOSE; Start 06/30/19 at 13:30 Dextrose (D50w Syringe) 50 ml Q15M PRN IV DECREASED GLUCOSE; Start 06/30/19 at 13:30 Glucagon (Glucagen) 1 mg Q15M PRN IM DECREASED GLUCOSE; Start 06/30/19 at 13:30 Glucose (Glutose) 15 gm Q15M PRN BUCCAL DECREASED GLUCOSE; Start 06/30/19 at 13:30 Magnesium Hydroxide (Milk Of Mag) 30 ml Q12H PRN PO CONSTIPATION Last admi nistered on 07/02/19at 01:54; Admin Dose 30 ML; Start 07/01/19 at 23:30 Rifampin (Rifampin) 600 mg DAILY PO Last administered on 07/02/19at 13:48; Admin Dose 600 MG; Start 07/02/19 at 14:00 ZAYDA HINES NP Jul 02, 2019 15:25
[2019-07-02] MEDS ORDERED: LACTULOSE 30ML CUP PO PRN (16:00)
[2019-07-02 20:07] VITALS: BP 115/64; PULSE 76; RESP 18
[2019-07-02] MEDS: INSULIN GLARGINE [LANTus] (100 UNITS/ML) SYG SC SCH (20:19)
[2019-07-02] MEDS: ATORVASTATIN 40 MG TAB PO SCH (20:20)
[2019-07-03] MEDS: ACCU-CHEK XX SCH ×5 (01:47→21:00)
[2019-07-03 02:00] VITALS: BP 129/50; PULSE 77; RESP 18
[2019-07-03] MEDS: VANCOMYCIN 1 GM 250 ML IVPB SCH ×2 (05:00→17:29)
[2019-07-03 07:53] VITALS: BP 128/62; PULSE 72; RESP 18
[2019-07-03] MEDS: ASPIRIN (EC) 81 MG TAB PO SCH (08:37)
[2019-07-03] MEDS: RIFAMPIN 300 MG CAP PO SCH (08:38)
[2019-07-03] MEDS: BENAZEPRIL 40 MG TAB PO SCH (08:38)
[2019-07-03] MEDS: GABAPENTIN 100 MG CAP PO SCH ×3 (08:38→21:25)
[2019-07-03] MEDS: INSULIN ASPART [NOVOLOG] 3 ML PEN SC SCH ×7 (08:41→21:00)
[2019-07-03] MEDS: HEPARIN 5,000 UNIT/1 ML VIAL SC SCH ×2 (08:42→21:28)
--- NOTE | 2019-07-03 12:59 | PN ---
Date/Time of Note Date/Time of Note DATE: 07/03/19 TIME: 12:57 Assessment/Plan VTE Prophylaxis Risk score (from Nsg)>0 risk: 4 SCD applied (from Nsg): Yes Pharmacological prophylaxis: heparin Lines/Catheters IV Catheter Type (from Nrsg): Saline Lock Assessment/Plan Hospital Course Assessment and plan #Acute on chronic left leg/ankle ulcer Continue antibiotics Continue wound care ID consult following culture with MRSA Await wound care consult eval Wound does appear to be improving #Hypertension Continue antihypertensives Adjust as needed Diabetes Continue insulin Adjust regimen as needed Dyslipidemia Continue statin Disposition plan. Wound appears to be improving. f/u ID for outpatient abx reg imen. wound care consult eval pending. Patient's outpatient ux developer designer notified Discussed POC with Dr. Landaverde Result Diagram: 07/03/19 0504 07/03/19 0504 Results 24hrs Laboratory Tests Test 07/02/19 17:14 07/02/19 20:17 07/03/19 05:04 07/03/19 08:19 Bedside Glucose 157 154 162 White Blood Count 6.8 Red Blood Count 4.53 Hemoglobin 11.2 L Hematocrit 35.4 L Mean Corpuscular Volume 78.1 L Mean Corpuscular 24.7 L Hemoglobin Mean Corpuscular 31.6 L Hemoglobin Concent Red Cell Distribution 14.6 H Width Platelet Count 304 Mean Platelet Volume 11.4 H Immature Granulocytes % 0.300 Neutrophils % 59.3 Lymphocytes % 31.3 Monocytes % 6.9 Eosinophils % 1.8 Basophils % 0.4 Nucleated Red Blood 0.0 Cells % Immature Granulocytes # 0.020 Neutrophils # 4.0 Lymphocytes # 2.1 Monocytes # 0.5 Eosinophils # 0.1 Basophils # 0.0 Nucleated Red Blood 0.0 Cells # Sodium Level 138 Potassium Level 4.1 Chloride Level 105 Carbon Dioxide Level 26 Anion Gap 7 Blood Urea Nitrogen 8 Creatinine 0.60 Est Glomerular Filtrat > 60 Rate mL/min Glucose Level 168 Calcium Level 8.9 Test 07/03/19 12:34 Bedside Glucose 214 Subjective 24 Hr Interval Summary Free Text/Dictation comfortable at present. family at bedside. Exam/Review of Systems Exam Vitals Vital Signs Date Temp Pulse Resp B/P (MAP) Pulse Ox O2 O2 Flow FiO2 Time Delivery Rate 07/03/19 98.5 72 18 128/62 96 Room Air 07:53 (84) Intake and Output 07/02/19 07/02/19 07/03/19 1515:00 23:00 07:00 IntakeIntake Total 500 ml 550 ml BalanceBalance 500 ml 550 ml Exam Constitutional: alert, oriented, obese Psych: nl mood/affect Head: normocephalic Respiratory: clear to auscultation, normal air movement Cardiovascular: regular rate and rhythm Gastrointestinal: soft, non-tender Neurological: CLAIM APPROVER II-XII intact, nl mental status, nl speech Skin: other (Left lower lateral leg wound) dressing cdi Results Results 24hrs Laboratory Tests Test 07/02/19 17:14 07/02/19 20:17 07/03/19 05:04 07/03/19 08:19 Bedside Glucose 157 154 162 White Blood Count 6.8 Red Blood Count 4.53 Hemoglobin 11.2 L Hematocrit 35.4 L Mean Corpuscular Volume 78.1 L Mean Corpuscular 24.7 L Hemoglobin Mean Corpuscular 31.6 L Hemoglobin Concent Red Cell Distribution 14.6 H Width Platelet Count 304 Mean Platelet Volume 11.4 H Immature Granulocytes % 0.300 Neutrophils % 59.3 Lymphocytes % 31.3 Monocytes % 6.9 Eosinophils % 1.8 Basophils % 0.4 Nucleated Red Blood 0.0 Cells % Immature Granulocytes # 0.020 Neutrophils # 4.0 Lymphocytes # 2.1 Monocytes # 0.5 Eosinophils # 0.1 Basophils # 0.0 Nucleated Red Blood 0.0 Cells # Sodium Level 138 Potassium Level 4.1 Chloride Level 105 Carbon Dioxide Level 26 Anion Gap 7 Blood Urea Nitrogen 8 Creatinine 0.60 Est Glomerular Filtrat > 60 Rate mL/min Glucose Level 168 Calcium Level 8.9 Test 07/03/19 12:34 Bedside Glucose 214 Medications Medication Current Medications IV Flush (NS 3 ml) 3 ml PER PROTOCOL IV ; Start 06/30/19 at 04:00 Ondansetron HCl (Zofran Inj) 4 mg Q6H PRN IV NAUSEA/VOMITING Last administered on 06/30/19at 08:42; Admin Dose 4 MG; Start 06/30/19 at 04:00 Acetaminophen (Tylenol Tab) 650 mg Q6H PRN PO .PAIN 1-3 OR TEMP; Start 06/30/19 at 04:00 Acetaminophen/ Hydrocodone Bitart ([place] (5/325)) 1 tab Q6H PRN PO .MOD PAIN 4- 6 Last administered on 07/01/19 20:37; Admin Dose 1 TAB; Start 06/30/19 at 04:00 Acetaminophen/ Hydrocodone Bitart ([place] (5/325)) 2 tab Q6H PRN PO .SEVERE PAIN 7-10; Start 06/30/19 at 04:00 Heparin Sodium (Porcine) (Heparin (5000 Units/1ml)) 5,000 unit Q12 SC Last administered on 07/03/19 08:42; Admin Dose 5,000 UNIT; Start 06/30/19 at 09:00 Albuterol/ Ipratropium (Duoneb) 3 ml Q2H RESP THERAPY PRN HHN SHORTNESS OF BREATH; Start 06/30/19 at 04:00 Aspirin (Halfprin) 81 mg QAM PO Last administered on 07/03/19 08:37; Admin Dose 81 MG; Start 06/30/19 at 09:00 Atorvastatin Calcium (Lipitor) 40 mg QHS PO Last administered on 07/02/19 20:20; Admin Dose 40 MG; Start 06/30/19 at 21:00 Benazepril HCl (Lotensin) 40 mg DAILY PO Last administered on 07/03/19 08:38; Admin Dose 40 MG; Start 06/30/19 at 09:00 Gabapentin (Neurontin) 100 mg TID PO Last administered on 07/03/19 12:44; Admin Dose 100 MG; Start 06/30/19 at 09:00 Diagnostic Test (Pha) (Accu-Chek) 1 ea AC MEALS AND BEDTIME XX Last administered on 07/02/19 20:26; Admin Dose 1 EA; Start 06/30/19 at 07:05 Vancomycin HCl (Vanco Iv Per Pharmacy) VANCOMYCIN PER PHARMACY PER PROTOCOL XX ; Start 06/30/19 at 07:00 Vancomycin HCl 250 ml @ 125 mls/hr Q12H IVPB Last administered on 07/03/19 05:00; Admin Dose 125 MLS/HR; Start 06/30/19 at 18:00 Diagnostic Test (Pha) (Accu-Chek) 1 ea 02 XX ; Start 07/01/19 at 02:00 Insulin Glargine (Lantus) 14 units DAILY@2000 SC Last administered on 8/2/19at 20:19; Admin Dose 14 UNITS; Start 06/30/19 at 20:00 Insulin Aspart (Novolog Insulin Pen) 5 unit WITH MEALS SC Last administered on 07/03/19at 12:46; Admin Dose 5 UNIT; Start 06/30/19 at 13:30 Insulin Aspart (Novolog Insulin Pen) NOVOLOG *MILD* ALGORITHM WITH MEALS BEDTIME SC Last administered on 07/03/19at 12:47; Admin Dose 2 UNIT; Start 06/30/19 at 13:30 Miscellaneous Information 1 ea NOTE XX ; Start 06/30/19 at 13:30 Glucose (Glutose) 15 gm Q15M PRN PO DECREASED GLUCOSE; Start 06/30/19 at 13:30 Glucose (Glutose) 22.5 gm Q15M PRN PO DECREASED GLUCOSE; Start 06/30/19 at 13:30 Dextrose (D50w Syringe) 25 ml Q15M PRN IV DECREASED GLUCOSE; Start 06/30/19 at 13:30 Dextrose (D50w Syringe) 50 ml Q15M PRN IV DECREASED GLUCOSE; Start 06/30/19 at 13:30 Glucagon (Glucagen) 1 mg Q15M PRN IM DECREASED GLUCOSE; Start 06/30/19 at 13:30 Glucose (Glutose) 15 gm Q15M PRN BUCCAL DECREASED GLUCOSE; Start 06/30/19 at 13:30 Magnesium Hydroxide (Milk Of Mag) 30 ml Q12H PRN PO CONSTIPATION Last administered on 07/02/19at 01:54; Admin Dose 30 ML; Start 07/01/19 at 23:30 Rifampin (Rifampin) 600 mg DAILY PO Last administered on 07/03/19at 08:38; Admin Dose 600 MG; Start 07/02/19 at 14:00 Lactulose (Enulose) 20 gm Q6H PRN PO CONSTIPATION Last administered on 07/03/19at 05:24; Admin Dose 20 GM; Start 07/02/19 at 16:00 DANIEL FERRARI NP Jul 03, 2019 12:59
[2019-07-03 14:14] VITALS: BP 104/49; PULSE 74; RESP 18
--- NOTE | 2019-07-03 19:31 | CONS ---
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 RX --------- --- CEFAZOLIN R CIPROFLOXACIN >=8 R CLINDAMYCIN <=0.25 S DOXYCYCLINE S ERYTHROMYCIN >=8 R LEVOFLOXACIN 4 R OXACILLIN >=4 R RIFAMPIN <=0.5 S VANCOMYCIN 1 S TRIMETHOPRIM/SULFAMETHOXAZOLE <=10 S * (-)MRSA Nares * 06/30/19 BCx (-) PHYSICAL EXAMINATION: GENERAL: VSS, NAD HEENT: AT, NC, NECK: Supple, CHEST: Rise symmetrical HEART: Pulse RRR ABDOMEN: EXTREMITIES: Warm, dry -Left lower extremity dressing intact SKIN: No rash, no diaphoresis ID ASSESSMENT 64 yo F admit with: 1. Left lower extremity cellulitis with chronic wound == > Acute on chronic left leg/ankle ulcer 2. Diabetes 3. Hypertension 4. Obesity (-) MRSA Nares ABX ALLERGIES: None to ABX INVASIVES: CURRENT ABX: DAY # => Vanco IV + Rifampin ID RECOMMENDATIONS/PLAN: 1. Anticipate DC opn Bactrim DS 1 tab po Q12H with full glass H20 x 10 days to OP f/u with primary provider. . Consultation Date/Type/Reason Admit Date/Time Jun 30, 2019 at 08:16 Initial Consult Date Date/Time of Note DATE: 07/03/19 TIME: 19:31 Exam/Review of Systems Exam Vitals Vital Signs Date Temp Pulse Resp B/P (MAP) Pulse Ox O2 O2 Flow FiO2 Time Delivery Rate 07/03/19 98.5 74 18 104/49 98 Room Air 14:14 (67) Intake and Output 07/02/19 07/02/19 07/03/19 1515:00 23:00 07:00 IntakeIntake Total 500 ml 550 ml BalanceBalance 500 ml 550 ml Results Result Diagram: 07/03/19 0504 07/03/19 0504 Results 24hrs Laboratory Tests Test 07/02/19 20:17 07/03/19 05:04 07/03/19 08:19 07/03/19 12:34 Bedside Glucose 154 162 214 White Blood Count 6.8 Red Blood Count 4.53 Hemoglobin 11.2 L Hematocrit 35.4 L Mean Corpuscular Volume 78.1 L Mean Corpuscular 24.7 L Hemoglobin Mean Corpuscular 31.6 L Hemoglobin Concent Red Cell Distribution 14.6 H Width Platelet Count 304 Mean Platelet Volume 11.4 H Immature Granulocytes % 0.300 Neutrophils % 59.3 Lymphocytes % 31.3 Monocytes % 6.9 Eosinophils % 1.8 Basophils % 0.4 Nucleated Red Blood 0.0 Cells % Immature Granulocytes # 0.020 Neutrophils # 4.0 Lymphocytes # 2.1 Monocytes # 0.5 Eosinophils # 0.1 Basophils # 0.0 Nucleated Red Blood 0.0 Cells # Sodium Level 138 Potassium Level 4.1 Chloride Level 105 Carbon Dioxide Level 26 Anion Gap 7 Blood Urea Nitrogen 8 Creatinine 0.60 Est Glomerular Filtrat > 60 Rate mL/min Glucose Level 168 Calcium Level 8.9 Test 07/03/19 17:10 Bedside Glucose 178 Medications Medication Current Medications IV Flush (NS 3 ml) 3 ml PER PROTOCOL IV ; Start 06/30/19 at 04:00 Ondansetron HCl (Zofran Inj) 4 mg Q6H PRN IV NAUSEA/VOMITING Last administered on 06/30/19at 08:42; Admin Dose 4 MG; Start 06/30/19 at 04:00 Acetaminophen (Tylenol Tab) 650 mg Q6H PRN PO .PAIN 1-3 OR TEMP; Start 06/30/19 at 04:00 Acetaminophen/ Hydrocodone Bitart ([place] (5/325)) 1 tab Q6H PRN PO .MOD PAIN 4- 6 Last administered on 07/01/19at 20:37; Admin Dose 1 TAB; Start 06/30/19 at 04:00 Acetaminophen/ Hydrocodone Bitart ([place] (5/325)) 2 tab Q6H PRN PO .SEVERE PAIN 7-10; Start 06/30/19 at 04:00 Heparin Sodium (Porcine) (Heparin (5000 Units/1ml)) 5,000 unit Q12 SC Last administered on 07/03/19at 08:42; Admin Dose 5,000 UNIT; Start 06/30/19 at 09:00 Albuterol/ Ipratropium (Duoneb) 3 ml Q2H RESP THERAPY PRN HHN SHORTNESS OF MERVIN ATH; Start 06/30/19 at 04:00 Aspirin (Halfprin) 81 mg QAM PO Last administered on 07/03/19 08:37; Admin Dose 81 MG; Start 06/30/19 at 09:00 Atorvastatin Calcium (Lipitor) 40 mg QHS PO Last administered on 07/02/19 20:20; Admin Dose 40 MG; Start 06/30/19 at 21:00 Benazepril HCl (Lotensin) 40 mg DAILY PO Last administered on 07/03/19 08:38; Admin Dose 40 MG; Start 06/30/19 at 09:00 Gabapentin (Neurontin) 100 mg TID PO Last administered on 07/03/19 12:44; Admin Dose 100 MG; Start 06/30/19 at 09:00 Diagnostic Test (Pha) (Accu-Chek) 1 ea AC MEALS AND BEDTIME XX Last administered on 07/02/19 20:26; Admin Dose 1 EA; Start 06/30/19 at 07:05 Vancomycin HCl (Vanco Iv Per Pharmacy) VANCOMYCIN PER PHARMACY PER PROTOCOL XX ; Start 06/30/19 at 07:00 Vancomycin HCl 250 ml @ 125 mls/hr Q12H IVPB Last administered on 07/03/19 17:29; Admin Dose 125 MLS/HR; Start 06/30/19 at 18:00 Diagnostic Test (Pha) (Accu-Chek) 1 ea 02 XX ; Start 07/01/19 at 02:00 Insulin Glargine (Lantus) 14 units DAILY@2000 SC Last administered on 07/02/19 20:19; Admin Dose 14 UNITS; Start 06/30/19 at 20:00 Insulin Aspart (Novolog Insulin Pen) 5 unit WITH MEALS SC Last administered on 07/03/19 17:30; Admin Dose 5 UNIT; Start 06/30/19 at 13:30 Insulin Aspart (Novolog Insulin Pen) NOVOLOG *MILD* ALGORITHM WITH MEALS B EDTIME SC Last administered on 07/03/19 17:31; Admin Dose 1 UNIT; Start 06/30/19 at 13:30 Miscellaneous Information 1 ea NOTE XX ; Start 06/30/19 at 13:30 Glucose (Glutose) 15 gm Q15M PRN PO DECREASED GLUCOSE; Start 06/30/19 at 13:30 Glucose (Glutose) 22.5 gm Q15M PRN PO DECREASED GLUCOSE; Start 06/30/19 at 13:30 Dextrose (D50w Syringe) 25 ml Q15M PRN IV DECREASED GLUCOSE; Start 06/30/19 at 13:30 Dextrose (D50w Syringe) 50 ml Q15M PRN IV DECREASED GLUCOSE; Start 06/30/19 at 13:30 Glucagon (Glucagen) 1 mg Q15M PRN IM DECREASED GLUCOSE; Start 06/30/19 at 13:30 Glucose (Glutose) 15 gm Q15M PRN BUCCAL DECREASED GLUCOSE; Start 06/30/19 at 13:30 Magnesium Hydroxide (Milk Of Mag) 30 ml Q12H PRN PO CONSTIPATION Last administered on 07/02/19at 01:54; Admin Dose 30 ML; Start 07/01/19 at 23:30 Rifampin (Rifampin) 600 mg DAILY PO Last administered on 07/03/19at 08:38; Admin Dose 600 MG; Start 07/02/19 at 14:00 Lactulose (Enulose) 20 gm Q6H PRN PO CONSTIPATION Last administered on 07/03/19at 05:24; Admin Dose 20 GM; Start 07/02/19 at 16:00 Miscellaneous Information (*Rx Drug Level Order Reminder*) MANJU WOLF 1700 ONCE XX ; Start 07/04/19 at 17:00; Stop 07/04/19 at 17:01 SHELLEY BARRETT NP Jul 03, 2019 19:31
[2019-07-03] MEDS: INSULIN GLARGINE [LANTus] (100 UNITS/ML) SYG SC SCH (20:08)
[2019-07-03 20:25] VITALS: BP 109/44; PULSE 85; RESP 17
[2019-07-03] MEDS: ATORVASTATIN 40 MG TAB PO SCH (21:25)
[2019-07-04 01:49] VITALS: BP 109/53; PULSE 66; RESP 17
[2019-07-04] MEDS: ACCU-CHEK XX SCH ×5 (02:00→20:41)
[2019-07-04] MEDS: VANCOMYCIN 1 GM 250 ML IVPB SCH (05:55)
[2019-07-04 08:16] VITALS: BP 140/59; PULSE 77; RESP 18
[2019-07-04] MEDS: BENAZEPRIL 40 MG TAB PO SCH (08:43)
[2019-07-04] MEDS: GABAPENTIN 100 MG CAP PO SCH ×3 (08:44→20:15)
[2019-07-04] MEDS: ASPIRIN (EC) 81 MG TAB PO SCH (08:44)
[2019-07-04] MEDS: RIFAMPIN 300 MG CAP PO SCH (08:44)
[2019-07-04] MEDS: INSULIN ASPART [NOVOLOG] 3 ML PEN SC SCH ×8 (08:46→20:17)
[2019-07-04] MEDS: HEPARIN 5,000 UNIT/1 ML VIAL SC SCH ×2 (08:47→20:18)
--- NOTE | 2019-07-04 11:40 | PN ---
Date/Time of Note Date/Time of Note DATE: 07/04/19 TIME: 11:35 Assessment/Plan VTE Prophylaxis Risk score (from Nsg)>0 risk: 6 SCD applied (from Nsg): Yes Pharmacological prophylaxis: heparin Lines/Catheters IV Catheter Type (from Nrsg): Saline Lock Assessment/Plan Hospital Course Assessment and plan #Acute on chronic left leg/ankle ulcer Continue antibiotics Continue wound care ID consult following culture with MRSA continue wound care per Dr. Min Wound does appear to be improving #Hypertension Continue antihypertensives Adjust as needed Diabetes Continue insulin Adjust regimen as needed Dyslipidemia Continue statin Disposition plan. Wound appears to be improving. f/u ID for outpatient abx regimen. f/u podiatry recommendations. f/u AM labs Discussed POC with Dr. Landaverde Result Diagram: 07/04/196 07/04/196 Results 24hrs Laboratory Tests Test 07/03/19 12:34 07/03/19 17:10 07/03/19 19:57 07/03/19 21:23 Bedside Glucose 214 178 141 120 Test 07/04/19 04:56 07/04/19 08:35 White Blood Count 6.3 Red Blood Count 4.35 Hemoglobin 10.9 L Hematocrit 34.1 L Mean Corpuscular Volume 78.4 L Mean Corpuscular 25.1 L Hemoglobin Mean Corpuscular 32.0 Hemoglobin Concent Red Cell Distribution 14.6 H Width Platelet Count 300 Mean Platelet Volume 11.0 H Immature Granulocytes % 0.300 Neutrophils % 51.8 Lymphocytes % 35.7 Monocytes % 8.4 Eosinophils % 3.2 Basophils % 0.6 Nucleated Red Blood 0.0 Cells % Immature Granulocytes # 0.020 Neutrophils # 3.3 Lymphocytes # 2.2 Monocytes # 0.5 Eosinophils # 0.2 Basophils # 0.0 Nucleated Red Blood 0.0 Cells # Sodium Level 138 Potassium Level 3.9 Chloride Level 104 Carbon Dioxide Level 27 Anion Gap 7 Blood Urea Nitrogen 8 Creatinine 0.74 Est Glomerular Filtrat > 60 Rate mL/min Glucose Level 155 Calcium Level 9.1 Bedside Glucose 147 Subjective 24 Hr Interval Summary Free Text/Dictation patient comfortable at present. no s/s of distress. Exam/Review of Systems Exam Vitals Vital Signs Date Temp Pulse Resp B/P (MAP) Pulse Ox O2 O2 Flow FiO2 Time Delivery Rate 07/04/19 98.7 77 18 140/59 98 08:16 (86) 07/03/19 Room Air 14:14 Intake and Output 07/03/19 07/03/19 07/04/19 1515:00 23:00 07:00 IntakeIntake Total 450 ml 550 ml 50 ml BalanceBalance 450 ml 550 ml 50 ml Exam Constitutional: alert, oriented, obese Psych: nl mood/affect Head: normocephalic Respiratory: clear to auscultation, normal air movement Cardiovascular: regular rate and rhythm Gastrointestinal: soft, non-tender Neurological: HEEL COVER SOFTENER II-XII intact, nl mental status, nl speech Skin: other (Left lower lateral leg wound) dressing cdi Results Results 24hrs Laboratory Tests Test 07/03/19 12:34 07/03/19 17:10 07/03/19 19:57 07/03/19 21:23 Bedside Glucose 214 178 141 120 Test 07/04/19 04:56 07/04/19 08:35 White Blood Count 6.3 Red Blood Count 4.35 Hemoglobin 10.9 L Hematocrit 34.1 L Mean Corpuscular Volume 78.4 L Mean Corpuscular 25.1 L Hemoglobin Mean Corpuscular 32.0 Hemoglobin Concent Red Cell Distribution 14.6 H Width Platelet Count 300 Mean Platelet Volume 11.0 H Immature Granulocytes % 0.300 Neutrophils % 51.8 Lymphocytes % 35.7 Monocytes % 8.4 Eosinophils % 3.2 Basophils % 0.6 Nucleated Red Blood 0.0 Cells % Immature Granulocytes # 0.020 Neutrophils # 3.3 Lymphocytes # 2.2 Monocytes # 0.5 Eosinophils # 0.2 Basophils # 0.0 Nucleated Red Blood 0.0 Cells # Sodium Level 138 Potassium Level 3.9 Chloride Level 104 Carbon Dioxide Level 27 Anion Gap 7 Blood Urea Nitrogen 8 Creatinine 0.74 Est Glomerular Filtrat > 60 Rate mL/min Glucose Level 155 Calcium Level 9.1 Bedside Glucose 147 Medications Medication Current Medications IV Flush (NS 3 ml) 3 ml PER PROTOCOL IV ; Start 06/30/19 at 04:00 Ondansetron HCl (Zofran Inj) 4 mg Q6H PRN IV NAUSEA/VOMITING Last administered on 06/30/19at 08:42; Admin Dose 4 MG; Start 06/30/19 at 04:00 Acetaminophen (Tylenol Tab) 650 mg Q6H PRN PO .PAIN 1-3 OR TEMP Last administered on 07/03/19 20:05; Admin Dose 650 MG; Start 06/30/19 at 04:00 Acetaminophen/ Hydrocodone Bitart ([place] (5/325)) 1 tab Q6H PRN PO .MOD PAIN 4- 6 Last administered on 07/01/19 20:37; Admin Dose 1 TAB; Start 06/30/19 at 04:00 Acetaminophen/ Hydrocodone Bitart ([place] (5/325)) 2 tab Q6H PRN PO .SEVERE PAIN 7-10; Start 06/30/19 at 04:00 Heparin Sodium (Porcine) (Heparin (5000 Units/1ml)) 5,000 unit Q12 SC Last administered on 07/04/19 08:47; Admin Dose 5,000 UNIT; Start 06/30/19 at 09:00 Albuterol/ Ipratropium (Duoneb) 3 ml Q2H RESP THERAPY PRN HHN SHORTNESS OF BREATH; Start 06/30/19 at 04:00 Aspirin (Halfprin) 81 mg QAM PO Last administered on 07/04/19 08:44; Admin Dose 81 MG; Start 06/30/19 at 09:00 Atorvastatin Calcium (Lipitor) 40 mg QHS PO Last administered on 07/03/19 21:25; Admin Dose 40 MG; Start 06/30/19 at 21:00 Benazepril HCl (Lotensin) 40 mg DAILY PO Last administered on 07/04/19 08:43; Admin Dose 40 MG; Start 06/30/19 at 09:00 Gabapentin (Neurontin) 100 mg TID PO Last administered on 07/04/19 08:44; Admin Dose 100 MG; Start 06/30/19 at 09:00 Diagnostic Test (Pha) (Accu-Chek) 1 ea AC MEALS AND BEDTIME XX Last administered on 07/02/19 20:26; Admin Dose 1 EA; Start 06/30/19 at 07:05 Vancomycin HCl (Vanco Iv Per Pharmacy) VANCOMYCIN PER PHARMACY PER PROTOCOL XX ; Start 06/30/19 at 07:00 Vancomycin HCl 250 ml @ 125 mls/hr Q12H IVPB Last administered on 07/04/19 05:55; Admin Dose 125 MLS/HR; Start 06/30/19 at 18:00 Diagnostic Test (Pha) (Accu-Chek) 1 ea 02 XX ; Start 07/01/19 at 02:00 Insulin Glargine (Lantus) 14 units DAILY@2000 SC Last administered on 07/03/19at 20:08; Admin Dose 14 UNITS; Start 06/30/19 at 20:00 Insulin Aspart (Novolog Insulin Pen) 5 unit WITH MEALS SC Last administered on 07/04/19 08:46; Admin Dose 5 UNIT; Start 06/30/19 at 13:30 Insulin Aspart (Novolog Insulin Pen) NOVOLOG *MILD* ALGORITHM WITH MEALS BEDTIME SC Last administered on 07/04/19 08:46; Admin Dose 1 UNIT; Start 06/30/19 at 13:30 Miscellaneous Information 1 ea NOTE XX ; Start 06/30/19 at 13:30 Glucose (Glutose) 15 gm Q15M PRN PO DECREASED GLUCOSE; Start 06/30/19 at 13:30 Glucose (Glutose) 22.5 gm Q15M PRN PO DECREASED GLUCOSE; Start 06/30/19 at 13:30 Dextrose (D50w Syringe) 25 ml Q15M PRN IV DECREASED GLUCOSE; Start 06/30/19 at 13:30 Dextrose (D50w Syringe) 50 ml Q15M PRN IV DECREASED GLUCOSE; Start 06/30/19 at 13:30 Glucagon (Glucagen) 1 mg Q15M PRN IM DECREASED GLUCOSE; Start 06/30/19 at 13:30 Glucose (Glutose) 15 gm Q15M PRN BUCCAL DECREASED GLUCOSE; Start 06/30/19 at 13:30 Magnesium Hydroxide (Milk Of Mag) 30 ml Q12H PRN PO CONSTIPATION Last administered on 07/02/19at 01:54; Admin Dose 30 ML; Start 07/01/19 at 23:30 Rifampin (Rifampin) 600 mg DAILY PO Last administered on 07/04/19at 08:44; Admin Dose 600 MG; Start 07/02/19 at 14:00 Lactulose (Enulose) 20 gm Q6H PRN PO CONSTIPATION Last administered on 07/03/19at 05:24; Admin Dose 20 GM; Start 07/02/19 at 16:00 Miscellaneous Information (*Rx Drug Level Order Reminder*) MANJU WOLF 1700 ONCE XX ; Start 07/04/19 at 17:00; Stop 07/04/19 at 17:01 DANIEL FERRARI NP Jul 04, 2019 11:40
[2019-07-04 13:31] VITALS: BP 128/61; PULSE 75; RESP 18
--- NOTE | 2019-07-04 16:03 | CONS ---
Assessment/Plan Assessment/Plan Hospital Course (Demo Recall) ID PROGRESS NOTE CURRENT ABX: DAY # => Vanco IV + Rifampin 24H INTERVAL SUMMARY * Awake, alert, responsive== left lower extremity wound DSG Changed by nurse in my presence -- wound is healing. * no fevers, VSS, NAD DIAGNOSTIC IMAGING * 06/30/19 MICRO * 06/30/19 WOUND CX LEG: WOUND CULTURE Final Organism 1 METHICILLIN RESISTANT S.AUREUS QUANTITY SCANT GROWTH . MULTI DRUG RESISTANT ORGANISM MRSA M.I.C. RX --------- --- CEFAZOLIN R CIPROFLOXACIN >=8 R CLINDAMYCIN <=0.25 S DOXYCYCLINE S ERYTHROMYCIN >=8 R LEVOFLOXACIN 4 R OXACILLIN >=4 R RIFAMPIN <=0.5 S VANCOMYCIN 1 S TRIMETHOPRIM/SULFAMETHOXAZOLE <=10 S * (-)MRSA Nares * 06/30/19 BCx (-) PHYSICAL EXAMINATION: GENERAL: VSS, NAD HEENT: AT, NC, NECK: Supple, CHEST: Rise symmetrical HEART: Pulse RRR ABDOMEN: EXTREMITIES: Warm, dry -Left lower extremity dressing intact SKIN: No rash, no diaphoresis ID ASSESSMENT 64 yo F admit with: 1. Left lower extremity cellulitis with chronic wound == > Acute on chronic left leg/ankle ulcer 2. Diabetes 3. Hypertension 4. Obesity (-) MRSA Nares ABX ALLERGIES: None to ABX INVASIVES: CURRENT ABX: DAY # => Vanco IV + Rifampin ID RECOMMENDATIONS/PLAN: 1. CHANGE ABX today to Bactrim DS 1 tab po Q12H with full glass H20 x 10 days to OP f/u with primary provider. 2. She is on low dose ACEI -- check renal fx in am -- may need to hold ACEI x 10 days for Bactrim -- defer to PC . Consultation Date/Type/Reason Admit Date/Time Jun 30, 2019 at 08:16 Initial Consult Date Date/Time of Note DATE: 07/04/19 TIME: 16:02 Exam/Review of Systems Exam Vitals Vital Signs Date Temp Pulse Resp B/P (MAP) Pulse Ox O2 O2 Flow FiO2 Time Delivery Rate 07/04/19 98.2 75 18 128/61 98 13:31 (83) 07/03/19 Room Air 14:14 Intake and Output 07/03/19 07/03/1907/04/19 1515:00 23:00 07:00 IntakeIntake Total 450 ml 550 ml 50 ml BalanceBalance 450 ml 550 ml 50 ml Results Result Diagram: 07/04/19 0456 07/04/19 0456 Results 24hrs Laboratory Tests Test 07/03/19 17:10 07/03/19 19:57 07/03/19 21:23 07/04/19 04:56 Bedside Glucose 178 141 120 White Blood Count 6.3 Red Blood Count 4.35 Hemoglobin 10.9 L Hematocrit 34.1 L Mean Corpuscular Volume 78.4 L Mean Corpuscular 25.1 L Hemoglobin Mean Corpuscular 32.0 Hemoglobin Concent Red Cell Distribution 14.6 H Width Platelet Count 300 Mean Platelet Volume 11.0 H Immature Granulocytes % 0.300 Neutrophils % 51.8 Lymphocytes % 35.7 Monocytes % 8.4 Eosinophils % 3.2 Basophils % 0.6 Nucleated Red Blood 0.0 Cells % Immature Granulocytes # 0.020 Neutrophils # 3.3 Lymphocytes # 2.2 Monocytes # 0.5 Eosinophils # 0.2 Basophils # 0.0 Nucleated Red Blood 0.0 Cells # Sodium Level 138 Potassium Level 3.9 Chloride Level 104 Carbon Dioxide Level 27 Anion Gap 7 Blood Urea Nitrogen 8 Creatinine 0.74 Est Glomerular Filtrat > 60 Rate mL/min Glucose Level 155 Calcium Level 9.1 Test 07/04/19 08:35 07/04/19 12:28 Bedside Glucose 147 257 H Medications Medication Current Medications IV Flush (NS 3 ml) 3 ml PER PROTOCOL IV ; Start 06/30/19 at 04:00 Ondansetron HCl (Zofran Inj) 4 mg Q6H PRN IV NAUSEA/VOMITING Last administered on 06/30/19at 08:42; Admin Dose 4 MG; Start 06/30/19 at 04:00 Acetaminophen (Tylenol Tab) 650 mg Q6H PRN PO .PAIN 1-3 OR TEMP Last administered on 07/03/19at 20:05; Admin Dose 650 MG; Start 06/30/19 at 04:00 Acetaminophen/ Hydrocodone Bitart ([place] (5/325)) 1 tab Q6H PRN PO .MOD PAIN 4- 6 Last administered on 07/01/19at 20:37; Admin Dose 1 TAB; Start 06/30/19 at 04:00 Acetaminophen/ Hydrocodone Bitart ([place] (5/325)) 2 tab Q6H PRN PO .SEVERE PAIN 7-10; Start 06/30/19 at 04:00 Heparin Sodium (Porcine) (Heparin (5000 Units/1ml)) 5,000 unit Q12 SC Last administered on 07/04/19 08:47; Admin Dose 5,000 UNIT; Start 06/30/19 at 09:00 Albuterol/ Ipratropium (Duoneb) 3 ml Q2H RESP THERAPY PRN HHN SHORTNESS OF BREATH; Start 06/30/19 at 04:00 Aspirin (Halfprin) 81 mg QAM PO Last administered on 07/04/19 08:44; Admin Dose 81 MG; Start 06/30/19 at 09:00 Atorvastatin Calcium (Lipitor) 40 mg QHS PO Last administered on 07/03/19 21:25; Admin Dose 40 MG; Start 06/30/19 at 21:00 Benazepril HCl (Lotensin) 40 mg DAILY PO Last administered on 07/04/19 08:43; Admin Dose 40 MG; Start 06/30/19 at 09:00 Gabapentin (Neurontin) 100 mg TID PO Last administered on 07/04/19 12:41; Admin Dose 100 MG; Start 06/30/19 at 09:00 Diagnostic Test (Pha) (Accu-Chek) 1 ea AC MEALS AND BEDTIME XX Last administered on 07/02/19 20:26; Admin Dose 1 EA; Start 06/30/19 at 07:05 Vancomycin HCl (Vanco Iv Per Pharmacy) VANCOMYCIN PER PHARMACY PER PROTOCOL XX ; Start 06/30/19 at 07:00 Vancomycin HCl 250 ml @ 125 mls/hr Q12H IVPB Last administered on 07/04/19 05:55; Admin Dose 125 MLS/HR; Start 06/30/19 at 18:00 Diagnostic Test (Pha) (Accu-Chek) 1 ea 02 XX ; Start 07/01/19 at 02:00 Insulin Glargine (Lantus) 14 units DAILY@2000 SC Last administered on 07/03/19 20:08; Admin Dose 14 UNITS; Start 06/30/19 at 20:00 Insulin Aspart (Novolog Insulin Pen) 5 unit WITH MEALS SC Last administered on 8/4/19at 12:43; Admin Dose 5 UNIT; Start 06/30/19 at 13:30 Insulin Aspart (Novolog Insulin Pen) NOVOLOG *MILD* ALGORITHM WITH MEALS BEDTIME SC Last administered on 07/04/19at 12:44; Admin Dose 3 UNIT; Start 06/30/19 at 13:30 Miscellaneous Information 1 ea NOTE XX ; Start 06/30/19 at 13:30 Glucose (Glutose) 15 gm Q15M PRN PO DECREASED GLUCOSE; Start 06/30/19 at 13:30 Glucose (Glutose) 22.5 gm Q15M PRN PO DECREASED GLUCOSE; Start 06/30/19 at 1 3:30 Dextrose (D50w Syringe) 25 ml Q15M PRN IV DECREASED GLUCOSE; Start 06/30/19 at 13:30 Dextrose (D50w Syringe) 50 ml Q15M PRN IV DECREASED GLUCOSE; Start 06/30/19 at 13:30 Glucagon (Glucagen) 1 mg Q15M PRN IM DECREASED GLUCOSE; Start 06/30/19 at 13:30 Glucose (Glutose) 15 gm Q15M PRN BUCCAL DECREASED GLUCOSE; Start 06/30/19 at 13:30 Magnesium Hydroxide (Milk Of Mag) 30 ml Q12H PRN PO CONSTIPATION Last administered on 07/02/19at 01:54; Admin Dose 30 ML; Start 07/01/19 at 23:30 Rifampin (Rifampin) 600 mg DAILY PO Last administered on 07/04/19at 08:44; Admin Dose 600 MG; Start 07/02/19 at 14:00 Lactulose (Enulose) 20 gm Q6H PRN PO CONSTIPATION Last administered on 07/03/19at 05:24; Admin Dose 20 GM; Start 07/02/19 at 16:00 Miscellaneous Information (*Rx Drug Level Order Reminder*) MANJU WOLF 1700 ONCE XX ; Start 07/04/19 at 17:00; Stop 07/04/19 at 17:01 SHELLEY BARRETT NP Jul 04, 2019 16:03
[2019-07-04 19:21] VITALS: BP 127/50; PULSE 86; RESP 19
[2019-07-04] MEDS: TRIMETHOPRIM/SULFAMETHOX (DS) TAB NGT SCH (20:15)
[2019-07-04] MEDS: ATORVASTATIN 40 MG TAB PO SCH (20:15)
[2019-07-04] MEDS: INSULIN GLARGINE [LANTus] (100 UNITS/ML) SYG SC SCH (20:17)
[2019-07-05] MEDS: ACCU-CHEK XX SCH ×5 (02:00→21:00)
[2019-07-05 02:43] VITALS: BP 118/61; PULSE 89; RESP 17
[2019-07-05] MEDS: INSULIN ASPART [NOVOLOG] 3 ML PEN SC SCH ×7 (07:35→20:17)
[2019-07-05 07:44] VITALS: BP 124/54; PULSE 75; RESP 18
[2019-07-05] MEDS: GABAPENTIN 100 MG CAP PO SCH ×3 (08:02→20:16)
[2019-07-05] MEDS: RIFAMPIN 300 MG CAP PO SCH (08:02)
[2019-07-05] MEDS: BENAZEPRIL 40 MG TAB PO SCH (08:03)
[2019-07-05] MEDS: ASPIRIN (EC) 81 MG TAB PO SCH (08:03)
[2019-07-05] MEDS: TRIMETHOPRIM/SULFAMETHOX (DS) TAB NGT SCH ×2 (08:03→20:16)
[2019-07-05] MEDS: HEPARIN 5,000 UNIT/1 ML VIAL SC SCH ×2 (08:06→20:17)
[2019-07-05 14:17] VITALS: BP 109/44; PULSE 72; RESP 19
--- NOTE | 2019-07-05 16:44 | CONS ---
Assessment/Plan Assessment/Plan Hospital Course (Demo Recall) Alert, feels good, no fevers Microbiology: Blood culture and MRSA swab negative left leg wound culture growing MRSA Antimicrobials: Bactrim Physical examination: Well-developed obese elderly woman who is alert in no distress head atraumatic normocephalic sclera nonicteric neck is supple chest rise symmetrical breath sounds clear heart S1-S2 abdomen soft bowel sounds present extremities: Left lower extremity dressing intact Assessment: 1. Left lower extremity cellulitis with chronic wound 2. Diabetes 3. Hypertension Plan: Patient remains stable, ok dc on Bactrim DS 1 tab po Q12H with full glass H20 x 10 days to OP f/u with primary provider. She is on low dose ACEI -- check renal fx in am -- may need to hold ACEI x 10 days for Bactrim -- defer to PC Consultation Date/Type/Reason Admit Date/Time Jun 30, 2019 at 08:16 Initial Consult Date Type of Consult id Date/Time of Note DATE: 07/05/19 TIME: 16:43 Exam/Review of Systems Exam Vitals Vital Signs Date Temp Pulse Resp B/P (MAP) Pulse Ox O2 O2 Flow FiO2 Time Delivery Rate 07/05/19 98.3 72 19 109/44 98 14:17 (65) 07/03/19 Room Air 14:14 Intake and Output 07/04/19 07/04/19 07/05/19 1515:00 23:00 07:00 IntakeIntake Total 960 ml 480 ml BalanceBalance 960 ml 480 ml Results Result Diagram: 07/05/19 0515 07/05/19 0515 Results 24hrs Laboratory Tests Test 07/04/19 16:54 07/04/19 20:14 07/05/19 01:33 07/05/19 05:15 Bedside Glucose 191 243 H 132 White Blood Count 7.8 # Red Blood Count 4.33 Hemoglobin 10.9 L Hematocrit 33.2 L Mean Corpuscular Volume 76.7 L Mean Corpuscular 25.2 L Hemoglobin Mean Corpuscular 32.8 Hemoglobin Concent Red Cell Distribution 14.6 H Width Platelet Count 317 Mean Platelet Volume 11.3 H Immature Granulocytes % 0.400 Neutrophils % 60.7 Lymphocytes % 27.4 Monocytes % 8.1 Eosinophils % 3.0 Basophils % 0.4 Nucleated Red Blood 0.0 Cells % Immature Granulocytes # 0.030 Neutrophils # 4.7 Lymphocytes # 2.1 Monocytes # 0.6 Eosinophils # 0.2 Basophils # 0.0 Nucleated Red Blood 0.0 Cells # Sodium Level 138 Potassium Level 3.9 Chloride Level 107 Carbon Dioxide Level 24 Anion Gap 7 Blood Urea Nitrogen 8 Creatinine 0.91 Est Glomerular Filtrat > 60 Rate mL/min Glucose Level 130 Calcium Level 9.1 Test 07/05/19 07:57 07/05/19 12:31 Bedside Glucose 138 185 Medications Medication Current Medications IV Flush (NS 3 ml) 3 ml PER PROTOCOL IV ; Start 06/30/19 at 04:00 Ondansetron HCl (Zofran Inj) 4 mg Q6H PRN IV NAUSEA/VOMITING Last administered on 06/30/19 08:42; Admin Dose 4 MG; Start 06/30/19 at 04:00 Acetaminophen (Tylenol Tab) 650 mg Q6H PRN PO .PAIN 1-3 OR TEMP Last administered on 07/03/19 20:05; Admin Dose 650 MG; Start 06/30/19 at 04:00 Acetaminophen/ Hydrocodone Bitart ([place] (5/325)) 1 tab Q6H PRN PO .MOD PAIN 4- 6 Last administered on 07/01/19 20:37; Admin Dose 1 TAB; Start 06/30/19 at 04:00 Acetaminophen/ Hydrocodone Bitart ([place] (5/325)) 2 tab Q6H PRN PO .SEVERE PAIN 7-10; Start 06/30/19 at 04:00 Heparin Sodium (Porcine) (Heparin (5000 Units/1ml)) 5,000 unit Q12 SC Last administered on 07/05/19 08:06; Admin Dose 5,000 UNIT; Start 06/30/19 at 09:00 Albuterol/ Ipratropium (Duoneb) 3 ml Q2H RESP THERAPY PRN HHN SHORTNESS OF BREATH; Start 06/30/19 at 04:00 Aspirin (Halfprin) 81 mg QAM PO Last administered on 07/05/19 08:03; Admin Dose 81 MG; Start 06/30/19 at 09:00 Atorvastatin Calcium (Lipitor) 40 mg QHS PO Last administered on 07/04/19 20:15; Admin Dose 40 MG; Start 06/30/19 at 21:00 Benazepril HCl (Lotensin) 40 mg DAILY PO Last administered on 07/05/19 08:03; Admin Dose 40 MG; Start 06/30/19 at 09:00 Gabapentin (Neurontin) 100 mg TID PO Last administered on 07/05/19 13:12; Admin Dose 100 MG; Start 06/30/19 at 09:00 Diagnostic Test (Pha) (Accu-Chek) 1 ea AC MEALS AND BEDTIME XX Last administered on 07/02/19 20:26; Admin Dose 1 EA; Start 06/30/19 at 07:05 Diagnostic Test (Pha) (Accu-Chek) 1 ea 02 XX ; Start 07/01/19 at 02:00 Insulin Aspart (Novolog Insulin Pen) NOVOLOG *MILD* ALGORITHM WITH MEALS BEDTIME SC Last administered on 07/05/19 12:33; Admin Dose 2 UNIT; Start 06/30/19 at 13:30 Miscellaneous Information 1 ea NOTE XX ; Start 06/30/19 at 13:30 Glucose (Glutose) 15 gm Q15M PRN PO DECREASED GLUCOSE; Start 06/30/19 at 13:30 Glucose (Glutose) 22.5 gm Q15M PRN PO DECREASED GLUCOSE; Start 06/30/19 at 13:30 Dextrose (D50w Syringe) 25 ml Q15M PRN IV DECREASED GLUCOSE; Start 06/30/19 at 13:30 Dextrose (D50w Syringe) 50 ml Q15M PRN IV DECREASED GLUCOSE; Start 06/30/19 at 13:30 Glucagon (Glucagen) 1 mg Q15M PRN IM DECREASED GLUCOSE; Start 06/30/19 at 13:30 Glucose (Glutose) 15 gm Q15M PRN BUCCAL DECREASED GLUCOSE; Start 06/30/19 at 13:30 Magnesium Hydroxide (Milk Of Mag) 30 ml Q12H PRN PO CONSTIPATION Last administered on 07/02/19 01:54; Admin Dose 30 ML; Start 07/01/19 at 23:30 Rifampin (Rifampin) 600 mg DAILY PO Last administered on 07/05/19 08:02; Admin Dose 600 MG; Start 07/02/19 at 14:00 Lactulose (Enulose) 20 gm Q6H PRN PO CONSTIPATION Last administered on 07/03/19 05:24; Admin Dose 20 GM; Start 07/02/19 at 16:00 Trimethoprim/ Sulfamethoxazole (Bactrim (Ds)) 1 tab BID NGT Last administered on 07/05/19at 08:03; Admin Dose 1 TAB; Start 07/04/19 at 21:00; Stop 07/14/19 at 20:59 Insulin Aspart (Novolog Insulin Pen) 6 unit WITH MEALS SC Last administered on 07/05/19at 12:33; Admin Dose 6 UNIT; Start 07/04/19 at 17:35 Insulin Glargine (Lantus) 18 units DAILY@2000 SC Last administered on 07/04/19at 20:17; Admin Dose 18 UNITS; Start 07/04/19 at 20:00 ZAYDA HINES NP Jul 05, 2019 16:44
--- NOTE | 2019-07-05 17:36 | PN ---
Date/Time of Note Date/Time of Note DATE: 07/05/19 TIME: 17:34 Assessment/Plan VTE Prophylaxis Risk score (from Nsg)>0 risk: 3 SCD applied (from Nsg): Yes Pharmacological prophylaxis: heparin Lines/Catheters IV Catheter Type (from Nrsg): [place] Assessment/Plan Hospital Course SUBJECTIVE: Denies any pain in the left lower extremity. OBJECTIVE: Physical Exam General: Obese, 64 year-old female lying in bed in no apparent distress. HEENT: Normocephalic, atraumatic. Eyes: Anicteric sclerae, conjunctivae clear. ENT: Nasal septum midline, oral mucosa moist. Neck supple, no JVD noticed. Respiratory: Bilaterally clear breath sounds. No use of accessory muscles of respiration. No adventitious breath sounds. Cardiovascular: S1, S2 heard. Regular rate and rhythm. Abdomen: Soft, nontender, and nondistended. Bowel sounds positive in all 4 quadrants. Genitourinary: Deferred. Extremities: No cyanosis, no clubbing. Left foot dressing. Neurologic: Cranial nerves II through XII grossly intact. The patient is awake, alert, and oriented. Labs & Vitals per chart ASSESSMENT & PLAN 64-year-old female with comorbidities including hypertension, diabetes mellitus type 2, dyslipidemia, obesity, and left lower extremity venous stasis disease and ulceration who underwent an excisional debridement on 06/01/2019 by , who presented to the emergency room on 06/30/2019 with left lower extremity pain, who was admitted to inpatient setting for further treatment and evaluation. 1. Left lower infected extremity venous stasis ulcer. Culture showing MRSA. Continue antimicrobials as per ID. Pending podiatry evaluation. Continue local wound care. 2. Hypertension. Continue antihypertensives. 3. Diabetes mellitus type 2. Hemoglobin A1c 13.2. Continue sliding scale insulin along with basal insulin and pre-meal insulin. 4. Dyslipidemia. Continue statins. 5. Obesity. BMI more than 36 kg/m. Advised therapeutic lifestyle changes. 6. Microcytic, hypochromic anemia. Monitor H&H closely. Obtain iron panel. 7. Fluids, electrolytes, and nutrition. Carbohydrate controlled diet. 8. DVT prophylaxis. Subcutaneous heparin. 9. Plan. Continue antimicrobials as per ID. Await podiatry evaluation. The patient was seen in collaboration with Dr. Romero. Result Diagram: 07/05/19 0515 07/05/19 0515 Results 24hrs Laboratory Tests Test 07/04/19 20:14 07/05/19 01:33 07/05/19 05:15 07/05/19 07:57 Bedside Glucose 243 H 132 138 White Blood Count 7.8 # Red Blood Count 4.33 Hemoglobin 10.9 L Hematocrit 33.2 L Mean Corpuscular Volume 76.7 L Mean Corpuscular 25.2 L Hemoglobin Mean Corpuscular 32.8 Hemoglobin Concent Red Cell Distribution 14.6 H Width Platelet Count 317 Mean Platelet Volume 11.3 H Immature Granulocytes % 0.400 Neutrophils % 60.7 Lymphocytes % 27.4 Monocytes % 8.1 Eosinophils % 3.0 Basophils % 0.4 Nucleated Red Blood 0.0 Cells % Immature Granulocytes # 0.030 Neutrophils # 4.7 Lymphocytes # 2.1 Monocytes # 0.6 Eosinophils # 0.2 Basophils # 0.0 Nucleated Red Blood 0.0 Cells # Sodium Level 138 Potassium Level 3.9 Chloride Level 107 Carbon Dioxide Level 24 Anion Gap 7 Blood Urea Nitrogen 8 Creatinine 0.91 Est Glomerular Filtrat > 60 Rate mL/min Glucose Level 130 Calcium Level 9.1 Test 07/05/19 12:31 07/05/19 17:15 Bedside Glucose 185 223 H Exam/Review of Systems Exam Vitals Vital Signs Date Temp Pulse Resp B/P (MAP) Pulse Ox O2 O2 Flow FiO2 Time Delivery Rate 07/05/19 98.3 72 19 109/44 98 14:17 (65) 07/03/19 Room Air 14:14 Intake and Output 07/04/19 07/04/19 07/05/19 1414:59 22:59 06:59 IntakeIntake Total 960 ml 480 ml BalanceBalance 960 ml 480 ml Results Results 24hrs Laboratory Tests Test 07/04/19 20:14 07/05/19 01:33 07/05/19 05:15 07/05/19 07:57 Bedside Glucose 243 H 132 138 White Blood Count 7.8 # Red Blood Count 4.33 Hemoglobin 10.9 L Hematocrit 33.2 L Mean Corpuscular Volume 76.7 L Mean Corpuscular 25.2 L Hemoglobin Mean Corpuscular 32.8 Hemoglobin Concent Red Cell Distribution 14.6 H Width Platelet Count 317 Mean Platelet Volume 11.3 H Immature Granulocytes % 0.400 Neutrophils % 60.7 Lymphocytes % 27.4 Monocytes % 8.1 Eosinophils % 3.0 Basophils % 0.4 Nucleated Red Blood 0.0 Cells % Immature Granulocytes # 0.030 Neutrophils # 4.7 Lymphocytes # 2.1 Monocytes # 0.6 Eosinophils # 0.2 Basophils # 0.0 Nucleated Red Blood 0.0 Cells # Sodium Level 138 Potassium Level 3.9 Chloride Level 107 Carbon Dioxide Level 24 Anion Gap 7 Blood Urea Nitrogen 8 Creatinine 0.91 Est Glomerular Filtrat > 60 Rate mL/min Glucose Level 130 Calcium Level 9.1 Test 07/05/19 12:31 07/05/19 17:15 Bedside Glucose 185 223 H Medications Medication Current Medications IV Flush (NS 3 ml) 3 ml PER PROTOCOL IV ; Start 06/30/19 at 04:00 Ondansetron HCl (Zofran Inj) 4 mg Q6H PRN IV NAUSEA/VOMITING Last administered on 06/30/19at 08:42; Admin Dose 4 MG; Start 06/30/19 at 04:00 Acetaminophen (Tylenol Tab) 650 mg Q6H PRN PO .PAIN 1-3 OR TEMP Last administered on 07/03/19at 20:05; Admin Dose 650 MG; Start 06/30/19 at 04:00 Acetaminophen/ Hydrocodone Bitart ([place] (5/325)) 1 tab Q6H PRN PO .MOD PAIN 4- 6 Last administered on 07/01/19at 20:37; Admin Dose 1 TAB; Start 06/30/19 at 04:00 Acetaminophen/ Hydrocodone Bitart ([place] (5/325)) 2 tab Q6H PRN PO .SEVERE PAIN 7-10; Start 06/30/19 at 04:00 Heparin Sodium (Porcine) (Heparin (5000 Units/1ml)) 5,000 unit Q12 SC Last adm inistered on 07/05/19 08:06; Admin Dose 5,000 UNIT; Start 06/30/19 at 09:00 Albuterol/ Ipratropium (Duoneb) 3 ml Q2H RESP THERAPY PRN HHN SHORTNESS OF BREATH; Start 06/30/19 at 04:00 Aspirin (Halfprin) 81 mg QAM PO Last administered on 07/05/19 08:03; Admin Dose 81 MG; Start 06/30/19 at 09:00 Atorvastatin Calcium (Lipitor) 40 mg QHS PO Last administered on 07/04/19at 20:15; Admin Dose 40 MG; Start 06/30/19 at 21:00 Benazepril HCl (Lotensin) 40 mg DAILY PO Last administered on 07/05/19at 08:03; A dmin Dose 40 MG; Start 06/30/19 at 09:00 Gabapentin (Neurontin) 100 mg TID PO Last administered on 07/05/19at 13:12; Admin Dose 100 MG; Start 06/30/19 at 09:00 Diagnostic Test (Pha) (Accu-Chek) 1 ea AC MEALS AND BEDTIME XX Last administered on 07/02/19at 20:26; Admin Dose 1 EA; Start 06/30/19 at 07:05 Diagnostic Test (Pha) (Accu-Chek) 1 ea 02 XX ; Start 07/01/19 at 02:00 Insulin Aspart (Novolog Insulin Pen) NOVOLOG *MILD* ALGORITHM WITH MEALS BEDTIME SC Last administered on 07/05/19at 17:17; Admin Dose 3 UNIT; Start 06/30/19 at 13:30 Miscellaneous Information 1 ea NOTE XX ; Start 06/30/19 at 13:30 Glucose (Glutose) 15 gm Q15M PRN PO DECREASED GLUCOSE; Start 06/30/19 at 13:30 Glucose (Glutose) 22.5 gm Q15M PRN PO DECREASED GLUCOSE; Start 06/30/19 at 13:30 Dextrose (D50w Syringe) 25 ml Q15M PRN IV DECREASED GLUCOSE; Start 06/30/19 at 13:30 Dextrose (D50w Syringe) 50 ml Q15M PRN IV DECREASED GLUCOSE; Start 06/30/19 at 13:30 Glucagon (Glucagen) 1 mg Q15M PRN IM DECREASED GLUCOSE; Start 06/30/19 at 13:30 Glucose (Glutose) 15 gm Q15M PRN BUCCAL DECREASED GLUCOSE; Start 06/30/19 at 13:30 Magnesium Hydroxide (Milk Of Mag) 30 ml Q12H PRN PO CONSTIPATION Last administered on 07/02/19at 01:54; Admin Dose 30 ML; Start 07/01/19 at 23:30 Rifampin (Rifampin) 600 mg DAILY PO Last administered on 07/05/19 08:02; Admin Dose 600 MG; Start 07/02/19 at 14:00 Lactulose (Enulose) 20 gm Q6H PRN PO CONSTIPATION Last administered on 07/03/19 05:24; Admin Dose 20 GM; Start 07/02/19 at 16:00 Trimethoprim/ Sulfamethoxazole (Bactrim (Ds)) 1 tab BID NGT Last administered on 07/05/19 08:03; Admin Dose 1 TAB; Start 07/04/19 at 21:00; Stop 07/14/19 at 20:59 Insulin Aspart (Novolog Insulin Pen) 6 unit WITH MEALS SC Last administered on 07/05/19 17:17; Admin Dose 6 UNIT; Start 07/04/19 at 17:35 Insulin Glargine (Lantus) 18 units DAILY@2000 SC Last administered on 07/04/19 20:17; Admin Dose 18 UNITS; Start 07/04/19 at 20:00 BLANCA WHEELER NP Jul 05, 2019 17:36
[2019-07-05] MEDS: ATORVASTATIN 40 MG TAB PO SCH (20:16)
[2019-07-05] MEDS: INSULIN GLARGINE [LANTus] (100 UNITS/ML) SYG SC SCH (20:17)
[2019-07-05 20:45] VITALS: BP 120/49; PULSE 77; RESP 18
[2019-07-06] MEDS: ACCU-CHEK XX SCH ×3 (01:16→11:07)
[2019-07-06 01:48] VITALS: BP 116/54; PULSE 82; RESP 18
[2019-07-06 07:36] VITALS: BP 114/49; PULSE 71; RESP 18
[2019-07-06] MEDS: ASPIRIN (EC) 81 MG TAB PO SCH (08:17)
[2019-07-06] MEDS: TRIMETHOPRIM/SULFAMETHOX (DS) TAB NGT SCH (08:17)
[2019-07-06] MEDS: GABAPENTIN 100 MG CAP PO SCH ×2 (08:17→13:07)
[2019-07-06] MEDS: RIFAMPIN 300 MG CAP PO SCH (08:18)
[2019-07-06] MEDS: BENAZEPRIL 40 MG TAB PO SCH (08:18)
[2019-07-06] MEDS: INSULIN ASPART [NOVOLOG] 3 ML PEN SC SCH ×4 (08:21→13:07)
[2019-07-06] MEDS: HEPARIN 5,000 UNIT/1 ML VIAL SC SCH (08:22)
--- NOTE | 2019-07-06 11:33 | CONS ---
Assessment/Plan Assessment/Plan Hospital Course (Demo Recall) all noted, no acute changes Microbiology: Blood culture and MRSA swab negative left leg wound culture growing MRSA Antimicrobials: Bactrim Physical examination: Well-developed obese elderly woman who is alert in no distress head atraumatic normocephalic sclera nonicteric neck is supple chest rise symmetrical breath sounds clear heart S1-S2 abdomen soft bowel sounds present extremities: Left lower extremity dressing intact Assessment: 1. Left lower extremity cellulitis with chronic wound 2. Diabetes 3. Hypertension Plan: Patient remains stable, renal f-n is worse today, will change abx to oral Doxycycline and Rifampin Consultation Date/Type/Reason Admit Date/Time Jun 30, 2019 at 08:16 Initial Consult Date Type of Consult id Date/Time of Note DATE: 07/06/19 TIME: 11:31 Exam/Review of Systems Exam Vitals Vital Signs Date Temp Pulse Resp B/P (MAP) Pulse Ox O2 O2 Flow FiO2 Time Delivery Rate 07/06/19 98.3 71 18 114/49 99 Room Air 07:36 (70) Intake and Output 07/05/19 07/05/19 07/06/19 1515:00 23:00 07:00 IntakeIntake Total 1200 ml BalanceBalance 1200 ml Results Result Diagram: 07/06/19 0432 07/06/19 0432 Results 24hrs Laboratory Tests Test 07/05/19 12:31 07/05/19 17:15 07/05/19 20:15 07/06/19 04:32 Bedside Glucose 185 223 H 171 White Blood Count 7.2 Red Blood Count 4.12 L Hemoglobin 10.5 L Hematocrit 31.4 L Mean Corpuscular Volume 76.2 L Mean Corpuscular 25.5 L Hemoglobin Mean Corpuscular 33.4 Hemoglobin Concent Red Cell Distribution 14.6 H Width Platelet Count 306 Mean Platelet Volume 10.9 H Immature Granulocytes % 0.400 Neutrophils % 57.6 Lymphocytes % 31.8 Monocytes % 6.6 Eosinophils % 3.2 Basophils % 0.4 Nucleated Red Blood 0.0 Cells % Immature Granulocytes # 0.030 Neutrophils # 4.2 Lymphocytes # 2.3 Monocytes # 0.5 Eosinophils # 0.2 Basophils # 0.0 Nucleated Red Blood 0.0 Cells # Sodium Level 139 Potassium Level 3.9 Chloride Level 108 Carbon Dioxide Level 24 Anion Gap 7 Blood Urea Nitrogen 9 Creatinine 1.15 H Est Glomerular Filtrat 48 L Rate mL/min Glucose Level 151 Calcium Level 9.0 Phosphorus Level 4.9 Magnesium Level 1.8 Iron Level 43 Total Iron Binding 302 Capacity Percent Iron Saturation 14 L Ferritin 13.5 Vitamin D 1,25-Dihydroxy 20.1 L Test 07/06/19 08:04 Bedside Glucose 163 Medications Medication Current Medications IV Flush (NS 3 ml) 3 ml PER PROTOCOL IV ; Start 06/30/19 at 04:00 Ondansetron HCl (Zofran Inj) 4 mg Q6H PRN IV NAUSEA/VOMITING Last administered on 06/30/19 08:42; Admin Dose 4 MG; Start 06/30/19 at 04:00 Acetaminophen (Tylenol Tab) 650 mg Q6H PRN PO .PAIN 1-3 OR TEMP Last administered on 07/03/19 20:05; Admin Dose 650 MG; Start 06/30/19 at 04:00 Acetaminophen/ Hydrocodone Bitart ([place] (5/325)) 1 tab Q6H PRN PO .MOD PAIN 4- 6 Last administered on 07/01/19 20:37; Admin Dose 1 TAB; Start 06/30/19 at 04:00 Acetaminophen/ Hydrocodone Bitart ([place] (5/325)) 2 tab Q6H PRN PO .SEVERE PAIN 7-10; Start 06/30/19 at 04:00 Heparin Sodium (Porcine) (Heparin (5000 Units/1ml)) 5,000 unit Q12 SC Last administered on 07/06/19 08:22; Admin Dose 5,000 UNIT; Start 06/30/19 at 09:00 Albuterol/ Ipratropium (Duoneb) 3 ml Q2H RESP THERAPY PRN HHN SHORTNESS OF BREATH; Start 06/30/19 at 04:00 Aspirin (Halfprin) 81 mg QAM PO Last administered on 07/06/19 08:17; Admin Dose 81 MG; Start 06/30/19 at 09:00 Atorvastatin Calcium (Lipitor) 40 mg QHS PO Last administered on 07/05/19 20:16; Admin Dose 40 MG; Start 06/30/19 at 21:00 Benazepril HCl (Lotensin) 40 mg DAILY PO Last administered on 07/06/19 08:18; Admin Dose 40 MG; Start 06/30/19 at 09:00 Gabapentin (Neurontin) 100 mg TID PO Last administered on 07/06/19 08:17; Admin Dose 100 MG; Start 06/30/19 at 09:00 Diagnostic Test (Pha) (Accu-Chek) 1 ea AC MEALS AND BEDTIME XX Last administered on 07/02/19at 20:26; Admin Dose 1 EA; Start 06/30/19 at 07:05 Diagnostic Test (Pha) (Accu-Chek) 1 ea 02 XX ; Start 07/01/19 at 02:00 Insulin Aspart (Novolog Insulin Pen) NOVOLOG *MILD* ALGORITHM WITH MEALS BEDTIME SC Last administered on 07/06/19 08:21; Admin Dose 1 UNIT; Start 06/30/19 at 13:30 Miscellaneous Information 1 ea NOTE XX ; Start 06/30/19 at 13:30 Glucose (Glutose) 15 gm Q15M PRN PO DECREASED GLUCOSE; Start 06/30/19 at 13:30 Glucose (Glutose) 22.5 gm Q15M PRN PO DECREASED GLUCOSE; Start 06/30/19 at 13:30 Dextrose (D50w Syringe) 25 ml Q15M PRN IV DECREASED GLUCOSE; Start 06/30/19 at 13:30 Dextrose (D50w Syringe) 50 ml Q15M PRN IV DECREASED GLUCOSE; Start 06/30/19 at 13:30 Glucagon (Glucagen) 1 mg Q15M PRN IM DECREASED GLUCOSE; Start 06/30/19 at 13:30 Glucose (Glutose) 15 gm Q15M PRN BUCCAL DECREASED GLUCOSE; Start 06/30/19 at 13:30 Magnesium Hydroxide (Milk Of Mag) 30 ml Q12H PRN PO CONSTIPATION Last administered on 07/02/19at 01:54; Admin Dose 30 ML; Start 07/01/19 at 23:30 Rifampin (Rifampin) 600 mg DAILY PO Last administered on 07/06/19 08:18; Admin Dose 600 MG; Start 07/02/19 at 14:00 Lactulose (Enulose) 20 gm Q6H PRN PO CONSTIPATION Last administered on 07/03/19 05:24; Admin Dose 20 GM; Start 07/02/19 at 16:00 Trimethoprim/ Sulfamethoxazole (Bactrim (Ds)) 1 tab BID NGT Last administered on 07/06/19 08:17; Admin Dose 1 TAB; Start 07/04/19 at 21:00; Stop 07/14/19 at 20:59 Insulin Aspart (Novolog Insulin Pen) 6 unit WITH MEALS SC Last administered on 07/06/19 08:21; Admin Dose 6 UNIT; Start 07/04/19 at 17:35 Insulin Glargine (Lantus) 18 units DAILY@2000 SC Last administered on 07/05/19 20:17; Admin Dose 18 UNITS; Start 07/04/19 at 20:00 ZAYDA HINES NP Jul 06, 2019 11:33
[2019-07-06] MEDS ORDERED: RIFAMPIN 300 MG CAP PO SCH (12:00)
[2019-07-06 14:00] VITALS: BP 124/56; PULSE 74; RESP 18
--- NOTE | 2019-07-06 14:32 | PN ---
Assessment/Plan VTE Prophylaxis Risk score (from Nsg)>0 risk: 4 Assessment/Plan Result Diagram: 07/06/19 0432 07/06/19 043 Exam/Review of Systems Exam Vitals Results Results 24hrs Medications Medication BLANCA WHEELER NP Jul 06, 2019 14:32
[2019-07-06] MEDS ORDERED: CHOLECALCIFEROL 1,000 UNIT TAB PO SCH (15:00)
--- NOTE | 2019-07-06 15:18 | CONS ---
Consultation Date/Type/Reason Admit Date/Time Jun 30, 2019 at 08:16 Initial Consult Date Date/Time of Note DATE: 07/06/19 TIME: 15:15 24 HR Interval Summary Free Text/Dictation f/p VSU ankle, left foot. Debrided ulceration at bedside. Needs application of Acticoat 7 with 2 layer wrap. Will f/up with pt. Friday at [facility]. Exam/Review of Systems Exam Vitals Vital Signs Date Temp Pulse Resp B/P (MAP) Pulse Ox O2 O2 Flow FiO2 Time Delivery Rate 07/06/19 97.5 74 18 124/56 98 Room Air 14:00 (78) Intake and Output 07/05/19 07/05/19 07/06/19 1515:00 23:00 07:00 IntakeIntake Total 1200 ml BalanceBalance 1200 ml Results Result Diagram: 07/06/19 0432 07/06/19 0432 Results 24hrs Laboratory Tests Test 07/05/19 17:15 07/05/19 20:15 07/06/19 04:32 07/06/19 08:04 Bedside Glucose 223 H 171 163 White Blood Count 7.2 Red Blood Count 4.12 L Hemoglobin 10.5 L Hematocrit 31.4 L Mean Corpuscular Volume 76.2 L Mean Corpuscular 25.5 L Hemoglobin Mean Corpuscular 33.4 Hemoglobin Concent Red Cell Distribution 14.6 H Width Platelet Count 306 Mean Platelet Volume 10.9 H Immature Granulocytes % 0.400 Neutrophils % 57.6 Lymphocytes % 31.8 Monocytes % 6.6 Eosinophils % 3.2 Basophils % 0.4 Nucleated Red Blood 0.0 Cells % Immature Granulocytes # 0.030 Neutrophils # 4.2 Lymphocytes # 2.3 Monocytes # 0.5 Eosinophils # 0.2 Basophils # 0.0 Nucleated Red Blood 0.0 Cells # Sodium Level 139 Potassium Level 3.9 Chloride Level 108 Carbon Dioxide Level 24 Anion Gap 7 Blood Urea Nitrogen 9 Creatinine 1.15 H Est Glomerular Filtrat 48 L Rate mL/min Glucose Level 151 Calcium Level 9.0 Phosphorus Level 4.9 Magnesium Level 1.8 Iron Level 43 Total Iron Binding 302 Capacity Percent Iron Saturation 14 L Ferritin 13.5 Vitamin D 1,25-Dihydroxy 20.1 L Test 07/06/19 12:20 Bedside Glucose 208 Medications Medication Current Medications IV Flush (NS 3 ml) 3 ml PER PROTOCOL IV ; Start 06/30/19 at 04:00 Ondansetron HCl (Zofran Inj) 4 mg Q6H PRN IV NAUSEA/VOMITING Last administered on 06/30/19 08:42; Admin Dose 4 MG; Start 06/30/19 at 04:00 Acetaminophen (Tylenol Tab) 650 mg Q6H PRN PO .PAIN 1-3 OR TEMP Last administered on 07/03/19 20:05; Admin Dose 650 MG; Start 06/30/19 at 04:00 Acetaminophen/ Hydrocodone Bitart ([place] (5/325)) 1 tab Q6H PRN PO .MOD PAIN 4- 6 Last administered on 07/01/19 20:37; Admin Dose 1 TAB; Start 06/30/19 at 04:00 Acetaminophen/ Hydrocodone Bitart ([place] (5/325)) 2 tab Q6H PRN PO .SEVERE PAIN 7-10; Start 06/30/19 at 04:00 Heparin Sodium (Porcine) (Heparin (5000 Units/1ml)) 5,000 unit Q12 SC Last administered on 07/06/19 08:22; Admin Dose 5,000 UNIT; Start 06/30/19 at 09:00 Albuterol/ Ipratropium (Duoneb) 3 ml Q2H RESP THERAPY PRN HHN SHORTNESS OF BREATH; Start 06/30/19 at 04:00 Aspirin (Halfprin) 81 mg QAM PO Last administered on 07/06/19 08:17; Admin Dose 81 MG; Start 06/30/19 at 09:00 Atorvastatin Calcium (Lipitor) 40 mg QHS PO Last administered on 07/05/19 20:16; Admin Dose 40 MG; Start 06/30/19 at 21:00 Benazepril HCl (Lotensin) 40 mg DAILY PO Last administered on 07/06/19 08:18; Admin Dose 40 MG; Start 06/30/19 at 09:00 Gabapentin (Neurontin) 100 mg TID PO Last administered on 07/06/19 13:07; Admin Dose 100 MG; Start 06/30/19 at 09:00 Diagnostic Test (Pha) (Accu-Chek) 1 ea AC MEALS AND BEDTIME XX Last administer ed on 07/02/19 20:26; Admin Dose 1 EA; Start 06/30/19 at 07:05 Diagnostic Test (Pha) (Accu-Chek) 1 ea 02 XX ; Start 07/01/19 at 02:00 Insulin Aspart (Novolog Insulin Pen) NOVOLOG *MILD* ALGORITHM WITH MEALS BEDTIME SC Last administered on 07/06/19at 13:06; Admin Dose 2 UNIT; Start 06/30/19 at 13:30 Miscellaneous Information 1 ea NOTE XX ; Start 06/30/19 at 13:30 Glucose (Glutose) 15 gm Q15M PRN PO DECREASED GLUCOSE; Start 06/30/19 at 13:30 Glucose (Glutose) 22.5 gm Q15M PRN PO DECREASED GLUCOSE; Start 06/30/19 at 13:30 Dextrose (D50w Syringe) 25 ml Q15M PRN IV DECREASED GLUCOSE; Start 06/30/19 at 13:30 Dextrose (D50w Syringe) 50 ml Q15M PRN IV DECREASED GLUCOSE; Start 06/30/19 at 13:30 Glucagon (Glucagen) 1 mg Q15M PRN IM DECREASED GLUCOSE; Start 06/30/19 at 13:30 Glucose (Glutose) 15 gm Q15M PRN BUCCAL DECREASED GLUCOSE; Start 06/30/19 at 13:30 Magnesium Hydroxide (Milk Of Mag) 30 ml Q12H PRN PO CONSTIPATION Last administered on 07/02/19at 01:54; Admin Dose 30 ML; Start 07/01/19 at 23:30 Rifampin (Rifampin) 600 mg DAILY PO Last administered on 07/06/19at 08:18; Admin Dose 600 MG; Start 07/02/19 at 14:00 Lactulose (Enulose) 20 gm Q6H PRN PO CONSTIPATION Last administered on 07/03/19at 05:24; Admin Dose 20 GM; Start 07/02/19 at 16:00 Insulin Aspart (Novolog Insulin Pen) 6 unit WITH MEALS SC Last administered on 07/06/19at 13:07; Admin Dose 6 UNIT; Start 07/04/19 at 17:35 Insulin Glargine (Lantus) 18 units DAILY@2000 SC Last administered on 07/05/19at 20:17; Admin Dose 18 UNITS; Start 07/04/19 at 20:00 Doxycycline Hyclate (Vibramycin) 100 mg BID PO ; Start 07/06/19 at 21:00 Cholecalciferol (Vitamin D) 1,000 unit DAILY PO ; Start 07/06/19 at 15:00 CATHERINE ANRVAEZ DPM Jul 06, 2019 15:18
--- NOTE | 2019-07-06 15:33 | PDOCDIS ---
Discharge Instructions CONDITION [id number] Patient Condition: [id number] Stable HOME CARE INSTRUCTIONS: [id number] Special Diet: [id number] Low carbohydrate FOLLOW UP/APPOINTMENTS Follow-up Plan [facility] on 07[facility]12/2019. OTHER ORDERS: Other Orders: 1. Resume home medications. 2. Complete the course of antibiotics. 3. Follow a low carbohydrate diet. 4. Follow-up with on Thursday 07/12/at the wound care clinic.2018 5. Resume activities as tolerated. 6. Elevate the left lower extremity while resting. BLANCA WHEEELR NP Jul 06, 2019 15:33
--- NOTE | 2019-07-06 15:39 | DS ---
Date/Time of Note Date/Time of Note DATE: 07/06/19 TIME: 15:36 Discharge Summary Admission/Discharge Info Admit Date/Time Jun 30, 2019 at 08:16 Discharge Date/Time Discharge Diagnosis 1. Infected left lower extremity venous stasis ulcer. 2. Hypertension. 3. Diabetes mellitus type 2. Hemoglobin A1c 13.2. 4. Dyslipidemia. 5. Obesity. BMI more than 36 kg/m. 6. Microcytic, hypochromic anemia. 7. Vitamin D deficiency. Patient Condition: Stable Consults 1. Barry Holt MD, Infectious Diseases. 2. Afshin Min DPM, Podiatry. Hx of Present Illness This is a 64-year-old female with comorbidities including hypertension, diabetes mellitus type 2, dyslipidemia, obesity, and left lower extremity venous stasis disease and ulceration who underwent an excisional debridement on 06/01/2019 by , who presented to the emergency room on 06/30/2019 with left lower extremity pain, who was admitted to inpatient setting for further treatment and evaluation. Hospital Course The patient was evaluated by podiatry and recommended local wound care. Culture of the wound showed MRSA. The patient was maintained on antimicrobials as per ID. The patient had a bedside debridement of the ulcer on 07/06/2019 by the director of curriculum and instruction. The patient was cleared by the director of curriculum and instruction to be discharged on oral antibiotic therapy on 07/06/2019. The patient's chronic problems include hypertension. The patient was maintained on antihypertensives. Patient has underlying diabetes mellitus type 2. Her hemoglobin A1c was found to be 13.2. The patient was continued on sliding scale insulin along with basal insulin and pre-meal insulin. The patient will be continued on basal insulin and pre-meal insulin upon discharge. The patient was evaluated by the clinical trial educator. The patient has underlying dyslipidemia. The patient was maintained on statins. The patient is obese with a BMI of more than 36 kg/m. The patient was advised on therapeutic lifestyle changes. Patient was noticed to have microcytic, hypochromic anemia. The patient's iron panel did not show any evidence of significant iron deficiency. The patient was incidentally found to have vitamin D deficiency. Therefore, the patient was started on vitamin D supplements. The patient had a stable hospital course. The patient was cleared by consultants to be discharged. Discharge Instructions 1. Resume home medications. 2. Complete the course of antibiotics. 3. Follow a low carbohydrate diet. 4. Follow-up with on Fridayat the wound care clinic.2018 5. Resume activities as tolerated. 6. Elevate the left lower extremity while resting. The patient verbalized understanding of her discharge instructions. At this time I would like to thank all the consultants for seeing the patient and providing clinical recommendations. The patient was seen in collaboration with Dr. Romero. Home Meds Active Scripts Rifampin* (Rifampin*) 300 Mg Capsule, 600 MG PO DAILY for 7 Days, #14 CAP 2 caps (600 mg) Po dailyX 7days. Prov:BLANCA WHEELER NP 07/06/19 Doxycycline* (Vibramycin*) 100 Mg Tab, 100 MG PO BID for 7 Days, #14 TAB Prov:BLANCA WHEELER NP 07/06/19 Cholecalciferol* (Vitamin D3*) 1,000 Unit Tablet, 1000 UNIT PO DAILY, #30 TAB Prov:BLANCA WHEELER NP 07/06/19 Reported Medications Insulin Lispro (Humalog Kwikpen U-100) 100 Unit/1 Ml Insuln.pen, 6 UNIT SQ TIDM A, EA 06/30/19 Insulin Glargine* (Lantus*) 100 Unit/Ml Soln, 20 UNIT SC QHS, #1 VIAL 06/30/19 Atorvastatin* (Atorvastatin*) 40 Mg Tablet, 1 TAB ORAL DAILY 06/21/19 Metformin Hcl* (Metformin Hcl*) 1,000 Mg Tablet, 1 TAB ORAL BID 06/21/19 Gabapentin* (Gabapentin*) 100 Mg Capsule, 1 CAP ORAL DAILY 06/21/19 Aspirin* (Aspirin* EC) 81 Mg Tablet., 1 TAB ORAL QAM 06/21/19 Benazepril Hcl* (Benazepril Hcl*) 40 Mg Tablet, 1 TAB ORAL DAILY 06/21/19 Follow-up Plan Wound Care Clinic on 07/12/2019. Primary Care Provider Not On Staff Doctor Time spent on discharge: > 30 minutes Pending Labs Laboratory Tests Test 07/05/19 17:15 07/05/19 20:15 07/06/19 04:32 07/06/19 08:04 Bedside 223 171 163 Glucose mg/dL (70-220) mg/dL (70-220) mg/dL (70-220) White Blood 7.2 Count 10^3/ul (4.8-1 0.8) Red Blood 4.12 Count 10^6/ul (4.20- 5.40) Hemoglobin 10.5 g/dl (12.0-16. 0) Hematocrit 31.4 % (37.0-47.0) Mean 76.2 Corpuscular fl (82.0-101.0 Volume ) Mean 25.5 Corpuscular pg (29.0-33.0) Hemoglobin Mean 33.4 Corpuscular g/dl (32.0-37. Hemoglobin Conc 0) ent Red Cell 14.6 Distribution % (11.5-14.5) Width Platelet Count 306 10^3/UL (140-4 15) Mean Platelet 10.9 Volume fl (7.4-10.4) Immature 0.400 Granulocytes % % (0.001-0.429 ) Neutrophils % 57.6 % (39.0-77.0) Lymphocytes % 31.8 % (15.0-51.0) Monocytes % 6.6 % (0.0-11.0) Eosinophils % 3.2 % (0.0-7.0) Basophils % 0.4 % (0.0-2.0) Nucleated Red 0.0 Blood Cells % /100WBC (0.0-0 .0) Immature 0.030 Granulocytes # 10^3/ul (0.0-0 .031) Neutrophils # 4.2 10^3/ul (1.6-7 .5) Lymphocytes # 2.3 10^3/ul (0.8-2 .9) Monocytes # 0.5 10^3/ul (0.3-0 .9) Eosinophils # 0.2 10^3/ul (0.0-0 .5) Basophils # 0.0 10^3/ul (0.0-0 .1) Nucleated Red 0.0 Blood Cells # 10^3/ul (0.0-0 .0) Sodium Level 139 mmol/L (135-14 4) Potassium 3.9 Level mmol/L (3.5-5. 1) Chloride Level 108 mmol/L (97-110 ) Carbon Dioxide 24 Level mmol/L (21-31) Anion Gap 7 (5-13) Blood Urea 9 mg/dl (7-20) Nitrogen Creatinine 1.15 mg/dl (0.44-1. 00) Est Glomerular 48 Filtrat mL/min (>60) Rate mL/min Glucose Level 151 mg/dl (70-220) Calcium Level 9.0 mg/dl (8.4-10. 2) Phosphorus 4.9 Level mg/dl (2.5-4.9 ) Magnesium 1.8 Level mg/dl (1.7-2.5 ) Iron Level 43 ug/dl (35-150) Total Iron 302 Binding ug/dl (241-421 Capacity ) Percent Iron 14 % Saturation SAT (22-52) Ferritin 13.5 ng/ml (11.1-26 4.0) Vitamin D 20.1 1,25-Dihydroxy ng/ml (30-100) Test 07/06/19 12:20 Bedside 208 Glucose mg/dL (70-220) BLANCA WHEELER NP Jul 06, 2019 15:39
[2019-07-06] MEDS ORDERED: DOXYCYCLINE 100 MG TAB PO SCH (21:00)
== END 2019-07-06 17:03 | disposition home or self-care (01) | DRG 638 ==
LOC: E/R 23:32 → MS3 06-30 03:17 → OBSVTOIN 06-30 08:16
PROVIDERS: ADMIT Internal Medicine; ATTEND Internal Medicine
DX: E11.622 Type 2 diabetes mellitus with other skin ulcer (principal); L97.829 Non-pressure chronic ulcer of other part of left lower leg with unspecified severity; I87.8 Other specified disorders of veins; I10 Essential (primary) hypertension; E78.5 Hyperlipidemia, unspecified; E66.9 Obesity, unspecified; Z68.37 Body mass index [BMI] 37.0-37.9, adult; Z79.4 Long term (current) use of insulin
CPT/HCPCS: 36415; 80048; 80053; 80061; 80202; 81003; 82306; 82652; 82728; 82962; 83036; 83540; 83690; 83735; 84100; 85025; 87070; 87081; 96361; 96374; 96375; G0378; J0692; J1644; J1815; J2270; J2405; J2543; J3370; J7040